=== PATIENT | male | born 1975 | race African-American/Black ===

== ENCOUNTER 2025-01-13 14:58 | Outpatient (AMB) | payer BC, SELFPAY ==
--- NOTE | 2025-01-13 15:01 | A.OFFVIS_ITS ---
Vital Signs 01/13/25 15:03 Height 5 ft 8.9 in Weight 212 lb 11.937 oz BMI 31.5 BP 146/92 H Blood Pressure Location Rt brachial Position Sitting Pulse 89 Pulse Source Pulse Oximeter Pulse Oximetry (%) 96 Oxygen Delivery Method Room Air Intake Visit Reasons: Asthma Allergies shellfish derived Allergy (Intermediate, Verified 01/13/25 15:06) Anaphylaxis HPI Comments Details: The patient is here for pulmonary evaluation. The patient is a 49-year-old gentleman with known severe persistent asthma who presents with ongoing wheezing shortness of breath and chest tightness. The patient does follow closely with allergy and immunology. Over the summer in April was having hard time and the patient did undergo pulmonary function studies. They were done at [place]. I did personally view them. Appeared that he had a significant obstructive ventilatory defect primarily in the post bronchodilator numbers along with roya re small airways disease consistent with severe persistent asthma. In addition to that he did have a restrictive ventilatory defect. Therefore he was sent for CT scan of the chest which I personally reviewed. The patient did have a dilated esophagus with debris suggesting the possibility of microaspiration. In addition to that the patient did have evidence of bronchitis and some atelectasis and mucus plugging primarily in the lingula. On further questioning he states that he has been some difficulty swallowing. He also complains of dyspepsia. He was recently started on omeprazole which seems to be helping. He also has a positional bed and sleeps elevated. We did talk about the reflux diet and is also trying to do that. He is going to continue to limit certain things that activate his symptoms. He had started Tezspire about 2 months ago. Seems to be tolerating it inhaled has been on Breztri inhaler which she takes twice a day. But event that he requires his rescue inhaler or nebulizer couple times a day at least. Even with minimal activity and exercise he becomes significantly winded. Will go ahead and try to maximize his respiratory therapy switching over to nebulized therapy. In addition to that will further address the esophageal issue as a potential precipitants feel his asthma symptoms. Also to note the patient does have some daytime drowsiness. [place] score is elevated 10/24. He did recently have a home sleep study per report which was considered normal. Prior to that he had a sleep study that was abnormal. [facility] Medical History (Updated 01/15/25 @ 22:41 by Brent Wallace MD) Dyspnea Asthma-COPD overlap syndrome Social History (Updated 01/13/25 @ 15:06 by Valorie Clatyon CMA) Patient Tobacco Use Status: Never used Tobacco Review of Systems Const Denies fever(s) Eyes Reports no additional complaints ENT Reports nasal congestion Card Denies chest pain and Reports dyspnea on exertion Resp Reports cough, Reports dyspnea on exertion and Reports wheezing GI Reports dyspepsia Musc Reports no additional complaints Skin/Breast Denies rash Endo Reports no additional complaints Romero/Lymph Reports no additional complaints Aller/Immun Reports wheezing Physical Exam Vital Signs: Last Vital Signs Pulse 89 01/13/25 15:03 BP 146/92 H 01/13/25 15:03 Pulse Ox 96 01/13/25 15:03 Oxygen Delivery Method Room Air 01/13/25 15:03 BMI result Body Mass Index 31.5 Const General: comfortable HEENT Head: Yes normocephalic Neck Neck: Yes supple Chest Chest palpation & inspection: normal inspection of the chest Resp Effort & Inspection: normal respiratory effort Auscultation: diminished lung sounds Cardio Heart sounds: S1 normal heart sound present and S2 normal heart sound present GI Palpation (GI): Soft to palpation Skin General skin exam: no rashes or lesions noted Extrem General: Yes no clubbing, cyanosis or edema Assessment & Plan Assessment & Plan (1) Asthma-COPD overlap syndrome: Code(s): J44.89 - Other specified chronic obstructive pulmonary disease Category: Medical (2) Dyspnea: Code(s): R06.00 - Dyspnea, unspecified Category: Medical Qualifiers: Dyspnea type: dyspnea on exertion Qualified Code(s): R06.09 - Other forms of dyspnea Plan Stop the Breztri start Brovana BID start Budesonide BID start Spiriva Respimet ANNEMARIE as needed Reflux diet HOB elevated Barium swallow Continue PPI F/U 6-8 weeks Orders: Orders FL barium swallow 01/13/25 K21.9 - Gastro-esophageal reflux disease without esophagitis Medications: New budesonide 0.5 mg (2 mL) inhalation BID 120 mL 11RF 30 days J44.89 - Other specified chronic obstructive pulmonary disease, J44.9 - Chronic obstructive pulmonary disease, unspecified tiotropium bromide 2.5 mcg/actuation (Spiriva Respimat) 2 puffs inhalation DAILY 1 ea 11RF 30 days arformoterol (Brovana) 2 mL inhalation Q12H 120 mL 11RF 30 days J44.89 - Other specified chronic obstructive pulmonary disease, J44.9 - Chronic obstructive pulmonary disease, unspecified Coding Level of Care Code New Pt Level 4 (65889) Diagnoses Asthma-COPD overlap syndrome J44.89 Dyspnea on exertion R06.09 Dyspnea type: dyspnea on exertion Time Spent (min) 38
[2025-01-13 15:03] VITALS: BP 146/92; PULSE 89; O2SAT 96; BMI 31.5
--- OUTSIDE RECORDS SUMMARY | 2025-01-13 15:03 | XMS_ITS | Clinical Summary ---
Author Organization [address] [facility] Address [address] [place] [address] Phone Care Team Providers Care Medical Asst Name Role Phone Marcos Wilson MD Primary Care Provider [phone] Allergies Active Allergy Reactions Criticality Noted Date Comments House Dust 07/23/2011 Dust Pollen Extracts 07/23/2011 Pollen Shellfish Derived Anaphylaxis High 08/27/2005 Medications cholecalciferol (VITAMIN D-3) 50 mcg (2,000 unit) tablet Take 1 Tablet by mouth daily. 4 Active diclofenac (VOLTAREN) 1 % topical gel Apply 1 Applicator topically 2 times daily as needed (As needed for pain.). 3 Active dupilumab (Dupixent Syringe) 300 mg/2 mL syringe Inject 300 mg into the skin every 14 days. 1 Active EPINEPHrine (EpiPen 2-Natalio) 0.3 mg/0.3 mL injection Inject 0.3 mg into the muscle as needed for Other (anaphylactic reaction). Fill with whichever brand is covered by insurance. 3 Active loratadine (CLARITIN) 10 mg tablet Take 1 Tablet by mouth daily as needed for Allergies. 3 Active multivitamin (ONE-A-DAY ESSENTIAL ORAL) 1 tab qd Acti ve oxyCODONE-aceta minophen (PERCOCET) 10-325 mg per tablet Take 1 Tablet by mouth 2 times daily as needed for Pain. Active sildenafiL (VIAGRA) 50 mg tablet Take 1 tablet 30 minutes before intercourse as needed. 4 Active ipratropium-alb uteroL (DUONEB) 0.5-2.5 mg/3 mL nebulizer solution Take 3 mL by nebulization every 6 (six) hours if needed for wheezing. 300 mL 3 4 02/22/20 25 Active fluticasone propionate (FLONASE) 50 mcg/actuation nasal spray Shake gently. Before first use, prime pump. After use, clean tip and replace cap. 16 g 5 Active omeprazole (PriLOSEC) [address] capsule Take 1 capsule (40 mg total) by mouth 1 (one) time each day. Do not crush or chew. 90 capsule 3 5 Active budesonide-glyc opyr-formoterol (Breztri Aerosphere) 160-9-4.8 mcg/actuation HFA aerosol inhaler inhaler Inhale 2 puffs by mouth 2 (two) times a day. 1 each 12 5 11/09/19 26 Active atorvastatin (LIPITOR) 20 mg tablet Take 1 tablet (20 mg total) by mouth 1 (one) time each day. 90 tablet 1 5 Active Active Problems Problem Noted Date Diagnosed Date YRN (obstructive sleep apnea) 01/26/2024 Moderate persistent asthma without complication 05/08/2022 Obesity (BMI 30.0-34.9) 05/08/2022 Primary hypertension 05/08/2022 SOB (shortness of breath) 11/27/2020 Overview (08/08/2024): Last Assessment & Plan: Most likely related to asthma. Due to reported mildly reduced left ventricular systolic function by echocardiogram, and other risk factors, I will arrange exercise echocardiogram with Definity contrast to reassess LV systolic function and ischemia evaluation Abnormal echocardiogram 11/26/2020 Overview (08/08/2024): Last Assessment & Plan: I reviewed his echocardiogram. Left ventricular systolic function assessment is difficult due to suboptimal image quality. I will repeat images with Definity contrast for better LV function assessment. Cyclic neutropenia (CMS/HCC V24, CMS/HCC V28) Allergic rhinitis 06/23/2019 Carpal tunnel syndrome 03/09/2019 Severe persistent asthma (CMS/HCC V28) 9 Environmental and seasonal allergies 01/28/2019 Overview (08/08/2024): Cats/dog dander, house mites, shellfish Severe obesity (BMI 35.0-35. 9 with comorbidity) ([facility] V24, [facility] V28) 01/28/2019 Cervical radiculopathy 12/08/2018 Elevated liver enzymes 08/20/2018 Gastroesophageal reflux disease without esophagi tis 06/30/2018 Bursitis of right hip 01/27/2018 Lumbar degenerative disc disease 12/03/2016 Overview (08/08/2024): [facility]ray in [facility] ER 11/30/2016 showing degenerative chnages with 6mm retrolisthesis of L5 - S1. Chest pain 07/07/2014 Overview (08/08/2024): neg ETT 07/2014 Erectile dysfunction 07/07/2014 Hyperlipidemia 06/23/2014 Arcus senilis 09/04/2008 Encounters Date Type Department Care Team Description 11/23/2024 Telephone Pulmonolgy - [address] [phone] June Ann MD provider call back 11/22/2024 Telephone Adult Medicine [address] [phone] Jessica eCrna LPN Fitting for DME 11/09/2024 9:30 AM EST Office Visit Adult Medicine [address] [phone] Marcos Wilsno MD Moderate persistent asthma with exacerbation (Primary Dx); RSV bronchitis; Mixed hyperlipidemia; Gastroesophageal reflux disease without esophagitis; Degeneration of intervertebral disc of lumbar region with discogenic back pain 10/31/2024 11:26 PM EST - 11/01/2024 1:26 AM EST Emergency [facility] Emergency [address] [place] [phone] Exacerbation of asthma, unspecified asthma severity, unspecified whether persistent (Primary Dx); Rhinovirus infection Discharge Disposition: Home or Self Care from Last 3 Months Immunizations Name Administration Dates Next Due Influenza Quadravalent, MDCK , 0.5ml, preservative free (Flucelvax) 6mo and older 10/22/2020 Influenza trivalent, 0.5mL, preservative free (Fluarix; FluLaval; Fluzone) ages 6mo and older (Afluria) 3 years and older 10/26/2017,12/12/2014,08/08/2013,08/10,06/17/2010,08/23/2008,06/28/2007 ,07/16/2006,07/28/2005 Influenza, Unspecified 11/04/2017 Pfizer SARS-CoV-2 COVID-19, mRNA, LNP-S, preservative free 10/16/2021,09/09/2021 Pneumococcal polysaccharide 23 valent (Pneumovax 23) 2yo and older 08/08/1994 Tdap Tetanus diptheria acell ular pertussis (Boostrix; Adacel) 7yo and older 12/07/2017,08/23/2008 Surgical History Surgery Date Site/Laterality Comments NOSE SURGERY PROCEDURE: MN UNLISTED PROCEDURE NOSE; COMMENT: septoplasty 2009 WISDOM TOOTH EXTRACTION PROCEDURE: HISTORICAL WISDOM TEETH EXTRACTION OTHER SURGICAL HISTORY 02/2022 Right PROCEDURE: MN ARTHRP ACETBLR/PROX FEM PROSTC AGRFT/ALGRFT; COMMENT: Brothana m's Medical History Medical History Date Comments Esophageal reflux 10/07/2005 DX:Esophageal reflux Allergic rhinitis DX:Allergic rh initis Hyperlipidemia DX:Hyperlipidemi a Overweight DX:Overweight Right rotator cuff tendonitis DX :Right rotator cuff tendonitis; COMMENT: left Moderate persistent asthma w ith exacerbation 08/27/2005 DX:Moderate persistent asthm a with exacerbation Carpal tunnel syndrome 03/09/2019 DX:Carpal tunnel syndrome Primary hypertension 05/08/2022 DX:Primary hypertension Primary hypertension 05/08/2022 Family History Medical History Relation Name Comments Breast cancer Aunt Asthma Daughter 1 Colon polyps Father Arthritis Maternal Grandmother Blindness Maternal Grandmother Cataracts Maternal Grandmother Diabetes Mother asthma Glaucoma Neg Hx Macular degeneration Neg Hx Strabismus Neg Hx Relation Name Status Comments Aunt Alive Brother Alive Daughter 1 Alive Daughter 2 Alive Father Alive Maternal Grandmother Alive Mother Alive Social History Tobacco Use Types Packs/Day Years Used Date Smoking Tobacco: Never Smokeless Tobacco: Never Tobacco Cessation:Counseling Given: Not Answered Alcohol Use Standard Drinks/Week Comments Yes 0 (1 standard drink = 0.6 oz pur e alcohol) Sex and Gender Information Value Date Recorded Sex Assigned at Not on file Legal Sex Male 2:08 PM EST Gender Identity Not on file Sexual Orientation Not on file Obstetrics History Last Filed Vital Signs Vital Sign Reading Time Taken Comments Blood Pressure 126/84 11/09/2024 9:19 AM EST Pulse 78 10/31/2024 10:20 PM EST Temperature 36.9 ??C (98.5 ??F) 11/09/2024 9:19 AM ES T Respiratory Rate 14 11/09/2024 9:19 AM EST Oxygen Saturation 96% 10/31/2024 10:20 PM EST Inhaled Oxygen Concentration - - Weight 96.2 kg (212 lb) 11/09/2024 9:19 AM EST Height 175.3 cm (5' 9 ) 11/09/2024 9:19 AM EST Body Mass Index 31.31 11/09/2024 9:19 AM EST Plan of Treatment Upcoming Encounters Date Type Department Care Team (Late st Contact Info) Description 02/02/2025 8:15 AM EDT [facility] [address] [phone] June Ann MD [address] [address] 03/06/2025 10:00 AM EDT [facility] [address] [phone] Jocelyne Jurado 03/15/2025 9:45 AM EDT [facility] [address] [phone] June Ann MD [address] [phone] Health Maintenance Due Date Last Done Comments Hepatitis B Vaccines (1 of 3 - 19+ 3-dose series) 1992 Zoster Vaccines (1 of 2) 1992 Pneumococcal Vaccine: 50+ Years (3 of 3 - PCV) 04/04/2011 04/04/2010, 05/31/2006, 08/08/1994 Pneumococcal Vaccine: Pediatrics (0 to 5 Years) and At-Risk Patients (6 to 64 Years) (3 of 3 - PCV) 04/04/2011 04/04/2010, 05/31/2006, 08/08/1994 COVID-19 Vaccine (3 - Pfizer risk series) 11/13/2021 10/16/2021, 09/09/2021 Depression Screening 09/13/2022 Social Influencers of Health Screening 09/13/2022 Influenza Vaccine (Season Ended) 2025 09/19/2022, 10/22/2020, 11/04/2017, Additional history exists Hypertension/CHF/CAD Annual BMP Blood Test 06/20/2025 06/20/2024, 06/20/2024 Colorectal Cancer Screening: Colonoscopy 01/07/2026 01/07/2021 DTaP,Tdap,and Td Vaccines (3 - Td or Tdap) 12/08/2027 12/07/2017, 08/23/2008 Cholesterol Screening (Lipid Panel) 05/11/2028 05/11/2023 HIV Screening Completed 08/08/2013 Hepatitis C Screening Completed 08/08/2013 HIB Vaccines Aged Out No longer eligi ble based on patient's age to complete this topic HPV Vaccines Aged Out No longer eligi ble based on patient's age to complete this topic Hepatitis A Vaccines Aged Out No long er eligible based on patient's age to complete this topic IPV Vaccines Aged Out No longer eligi ble based on patient's age to complete this topic MMR Vaccines Aged Out No longer eligi ble based on patient's age to complete this topic Meningococcal ACWY Vaccine Aged Out N o longer eligible based on patient's age to complete this topic Meningococcal B Vaccine Aged Out No l onger eligible based on patient's age to complete this topic RSV Immunization Patients Under 20 months Aged Out No longer eligible based on patient's age to complete this topic Varicella Vaccines Aged Out No longer eligible based on patient's age to complete this topic Procedures Procedure Name Priority Date/Time Associated Diagnosis Comments POLYSOMNOGRAPHY Routine 12/27/2024 1:29 PM EDT XR CHEST 2 VIEWS STAT 10/31/2024 11:4 1 PM EST RESPIRATORY VIRUS PANEL MOLECULAR STUDY STAT 10/31/2024 10:36 PM EST ANNUAL BMP BLOOD TEST Routine 06/20/2024 LIPID PANEL Routine 05/11/2023 COLONOSCOPY Routine 01/07/2021 HEPATITIS C SCREENING Routine 08/08/2013 HIV SCREENING Routine 08/08/2013 from Last 3 Months or Most Recently Relevant to Health Maintenance Results * Polysomnography (12/27/2024 1:29 PM EDT) us Historical Provider [facility] ORDERABLES F inal Result * XR Chest 2 Views (10/31/2024 11:41 PM EST) Anatomical Region Laterality Modality Body Radiographic Jael ging 11/01/2024 8:48 AM EST Impressions 11/01/2024 8:49 AM EST Impression: Stable radiographic appearance of the chest. No active pulmonary process identified. Telerad SIERRA ([id number]) -------- FINAL REPORT -------- Dictated By: Rowan Camacho Dictated Date: 11/01/2024 08:48 ET Assigned Physician: Rowan Camacho Reviewed and Electronically Signed By: Rowan Camacho Signed Date: 11/01/2024 08:49 ET Workstation ID: [id number] Transcribed By: Self Edit Transcribed Date: 11/01/2024 08:48 ET Narrative 11/01/2024 8:49 AM EST History: Dyspnea. Asthma. Comparison: 06/20/20 Findings: PA and lateral views. The cardiomediastinal silhouette, hilar contours and pulmonary vascularity are within normal limits. The lungs are clear. The costophrenic angles are sharp. The regional skeleton is intact. Procedure Note Rowan Camacho MD - 11/01/2024 History: Dyspnea. Asthma. Comparison: 06/20/20 Findings: PA and lateral views. The cardiomediastinal silhouette, hilar contours andpulmonary vascularity are within normal limits. The lungs are clear. Thecostophrenic angles are sharp. The regional skeleton is intact. IMPRESSION: Impression: Stable radiographic appearance of the chest. No active pulmonary processidentified. Telerad PA ([id number]) -------- FINAL REPORT -------- Dictated By: Rowan Camacho Dictated Date: 11/01/2024 08:48 ET Assigned Physician: Rowan Camacho Reviewed and Electronically Signed By: Rowan Camacho Signed Date: 11/01/2024 08:49 ET Workstation ID: [id number] Transcribed By: Self Edit Transcribed Date: 11/01/2024 08:48 ET Nba Dawson MD IMG XR PROCEDURES Final R esult * (ABNORMAL) Respiratory virus panel molecular study (10/31/2024 10:36 PM EST) Adenovirus Detection by PCR Not Detected Not Detected LAB MICROBIOLOGY METHOD 11/01/2024 12:23 AM [facility] Influenza A PCR Not Detected Not Detected LAB MICROBIOLOGY METHOD 11/01/2024 12:23 AM [facility] Influenza B PCR Not Detected Not Detected LAB MICROBIOLOGY METHOD 11/01/2024 12:23 AM [facility] Coronavirus 229E Not Detected Not Detected LAB MICROBIOLOGY METHOD 11/01/2024 12:23 AM [facility] Coronavirus HKU1 Not Detected Not Detected LAB MICROBIOLOGY METHOD 11/01/2024 12:23 AM [facility] Coronavirus OC43 Not Detected Not Detected LAB MICROBIOLOGY METHOD 11/01/2024 12:23 AM [facility] Coronavirus NL63 Not Detected Not Detected LAB MICROBIOLOGY METHOD 11/01/2024 12:23 AM [facility] Parainfluenza Virus 1 Not Detected Not Detected LAB MICROBIOLOGY METHOD 11/01/2024 12:23 AM [facility] Parainfluenza Virus 2 Not Detected Not Detected LAB MICROBIOLOGY METHOD 11/01/2024 12:23 AM [facility] Parainfluenza Virus 3 Not Detected Not Detected LAB MICROBIOLOGY METHOD 11/01/2024 12:23 AM [facility] Parainfluenza Virus 4 Not Detected Not Detected LAB MICROBIOLOGY METHOD 11/01/2024 12:23 AM [facility] RSV PCR Not Detected Not Detected LAB MICROBIOLOGY METHOD 11/01/2024 12:23 AM [facility] Human Metapneumovirus A and B Not Detected Not Detected LAB MICROBIOLOGY METHOD 11/01/2024 12:23 AM [facility] Rhinovirus/Entero virus Detected(A ) Not Detected LAB MICROBIOLOGY METHOD 11/01/2024 12:23 AM [facility] Bordetella pertussis Not Detected Not Detected LAB MICROBIOLOGY METHOD 11/01/2024 12:23 AM [facility] Bordetella parapertussis Not Detected Not Detected LAB MICROBIOLOGY METHOD 11/01/2024 12:23 AM [facility] Mycoplasma pneumo by PCR Not Detected Not Detected LAB MICROBIOLOGY METHOD 11/01/2024 12:23 AM [facility] Chlamydia pneumoniae Not Detected Not Detected LAB MICROBIOLOGY METHOD 11/01/2024 12:23 AM [facility] SARS COV-2 Not Detected Not Detected LAB MICROBIOLOGY METHOD 11/01/2024 12:23 AM [facility] Swab Nasopharyngeal structure / Unknown Non-blood Collection / Unknown 10/31/2024 10:36 PM EST 10/31/2024 11:28 PM EST [facility] - 11/01/2024 12:23 AM EST Testing was performed using the Ampriuse Respiratory Pathogen PCR Assay. All results must be correlated with the clinical findings. Results should not be used as the sole basis for diagnosis. False Negative results may occur from the presence of sequence variants in the region targeted by the assay or the presence of inhibitors. Results may be affected by concurrent antiviral/antimicrobial therapy or levels of organisms that are below the limit of detection. Nba Dawson MD LAB MICROBIOLOGY - GENERA L ORDERABLES Final Result [facility] [address] [place] [address], * Annual BMP Blood Test (06/20/2024) [facility] Annual BMP Blood Test Abstracted Result [facility] Provider HEALTH MAINTENANCE Final Result * (ABNORMAL) Lipid panel (05/11/2023) [facility] LDL/HDL Ratio 3 0 - 4 Triglycerides 64 0 - 150 mg/dL Cholesterol 169 0 - 200 mg/dL HDL 55 >=40 mg/dL LDL Cholesterol 102(A) 0 - 100 mg/dL Blood Venous blood specimen / Unknown Result [facility] Yuriy LUTHER LAB BLOOD ORDERABLES Tereza l Result * Colonoscopy (01/07/2021) [facility] Colonoscopy Normal, Abstracted Anatomical Region Laterality Modality Other Result [facility] Yuriy LUTHER HEALTH MAINTENANCE Final Result * HIV Screening (08/08/2013) [facility] HIV Screening Abstracted Result [facility] Provider HEALTH MAINTENANCE Final Result * Hepatitis C Screening (08/08/2013) [facility] Hepatitis C Screening Abstracted [facility] Provider HEALTH MAINTENANCE Final Result from Last 3 Months or Most Recently Relevant to Health Maintenance Insurance [facility] Care Teams Medical Asst Relationship Specialty Start Date End Date Marcos Wilson MD [address] [place] [address] PCP - General Internal Medicine 04/18/22
--- OUTSIDE RECORDS SUMMARY | 2025-01-13 15:03 | XMS_ITS | Clinical Summary ---
Author Organization [facility] Address [address] [place] [id number] Care Team Providers Care Leveling Machine Operator Name Role Phone Maximo Little MD Primary Care Provider [phone] Allergies Active Allergy Reactions Criticality Noted Date Comments Dust 04/27/2019 Pollen Extract 04/27/2019 Shellfish Anaphylaxis High 04/27/2019 Medications Medication Sig Dispensed Refills Start Date End Date Status loratadine (CLARITIN) 10 MG tablet Take 10 mg by mouth. 0 02/09/2018 Active montelukast (SINGULAIR) 10 MG tablet 0 04/06/2019 Active raNITIdine (ZANTAC) 75 MG tablet Take 75 mg by mouth. 0 Active albuterol (PROVENTIL HFA;VENTOLIN HFA) 108 (90 Base) MCG/ACT inhaler Inhale 2 puffs into the lungs. 0 04/23/2019 Active atorvastatin (LIPITOR) tablet 20 mg 0 04/06/2019 Active oxyCODONE-acetaminophe n (PERCOCET) 10-325 MG per tablet Take 1 tablet by mouth. 0 04/26/2019 Active fluticasone-salmeterol (ADVAIR) 500-50 MCG/DOSE DISKUS Inhale 1 puff into the lungs. 0 03/15/2019 Active Active Problems Problem Noted Date Diagnosed Date Right carpal tunnel syndrome 04/27/2019 Left carpal tunnel syndrome 04/27/2019 Family History Medical History Relation Name Comments Diabetes Mother Relation Name Status Comments Mother Social History Tobacco Use Types Packs/Day Years Used Date Smoking Tobacco: Never Smokeless Tobacco: Never Alcohol Use Standard Drinks/Week Comments Yes 0 (1 standard drink = 0.6 oz pur e alcohol) Sex and Gender Information Value Date Recorded Sex Assigned at Not on file Gender Identity Not on file Sexual Orientation Not on file Job Start Date Occupation Industry Not on file Not on file Not on file Last Filed Vital Signs Vital Sign Reading Time Taken Comments Blood Pressure 137/82 04/03/2020 3:02 PM EDT Pulse 94 04/03/2020 3:02 PM EDT Temperature 36.3 ??C (97.4 ??F) 04/03/2020 3:02 PM ED T Respiratory Rate - - Oxygen Saturation - - Inhaled Oxygen Concentration - - Weight 92.1 kg (203 lb) 12/25/2021 2:31 PM EDT Height 175.3 cm (5' 9 ) 12/25/2021 2:31 PM EDT Body Mass Index 29.98 12/25/2021 2:31 PM EDT Plan of Treatment Health Maintenance Due Date Last Done Comments Hepatitis B Vaccines (1 of 3 - 3-dose series) 1973 Hepatitis C Screening 1973 Depression Screening 1985 BMI Counseling 1991 Preventative Health Evaluation 1991 Colon Cancer Screening (Colonoscopy) 2018 Shingrix-Zoster Vaccine (1 of 2) 2023 COVID-19 Vaccine ( season) 2024 10/16/2021, 09/09/2021 Influenza Vaccine (#1) 2024 , 12/12/2014, 08/08/2013, Additional history exists DTap / Tdap / Td (3 - Td or Tdap) 12/08/2027 12/07/2017, 08/23/2008 Pneumococcal Vaccine Aged Out 08/08/1994 No long er eligible based on patient's age to complete this topic RSV Ped < 20 months Aged Out No longe r eligible based on patient's age to complete this topic Care Teams Leveling Machine Operator Relationship Specialty Start Date End Date Maximo Little MD PCP - General Internal Medicine 04/27/19
== END 2025-01-13 15:49 | disposition home or self-care (01) ==
LOC: HO.HPS 14:59
PROVIDERS: PCP Internal Medicine; Visit Provider Hospitalist
DX: J44.89 Other specified chronic obstructive pulmonary disease (principal); R06.09 Other forms of dyspnea
CPT/HCPCS: 99204

== ENCOUNTER 2025-03-14 08:29 | Outpatient (AMB) | payer BC, SELFPAY ==
[2025-03-14 08:41] VITALS: BP 100/68; PULSE 85; O2SAT 95; BMI 30.8
--- NOTE | 2025-03-14 08:41 | MHC.OFFVIS ---
Vital Signs 03/14/25 08:41 Height 5 ft 9 in Weight 208 lb 5.389 oz BMI 30.8 BP 100/68 Blood Pressure Location Lt brachial Position Sitting Pulse 85 Pulse Source Pulse Oximeter Pulse Oximetry (%) 95 Oxygen Delivery Method Room Air Intake Visit Reasons: Asthma Special Delivery Worker Required: No Accompanied by: Self / Same As Patient Allergies shellfish derived Allergy (Intermediate, Verified 03/14/25 08:43) Anaphylaxis HPI Comments Details: The patient is a 49-year-old gentleman with known severe persistent asthma who presents with ongoing wheezing shortness of breath and chest tightness. The patient does follow closely with allergy and immunology. Over the summer in April was having hard time and the patient did undergo pulmonary function studies. They were done at [facility]. I did personally view them. Appeared that he had a significant obstructive ventilatory defect primarily in the post bronchodilator numbers along with severe small airways disease consistent with severe persistent asthma. In addition to that he did have a restrictive ventilatory defect. Therefore he was sent for CT scan of the chest which I personally reviewed. The patient did have a dilated esophagus with debris suggesting the possibility of microaspiration. In addition to that the patient did have evidence of bronchitis and some atelectasis and mucus plugging primarily in the lingula. On further questioning he states that he has been some difficulty swallowing. He also complains of dyspepsia. He was recently started on omeprazole which seems to be helping. He also has a positional bed and sleeps elevated. We did talk about the reflux diet and is also trying to do that. He is going to continue to limit certain things that activate his symptoms. He had started Tezspire about 2 months ago. Seems to be tolerating it inhaled has been on Breztri inhaler which she takes twice a day. But event that he requires his rescue inhaler or nebulizer couple times a day at least. Even with minimal activity and exercise he becomes significantly winded. Will go ahead and try to maximize his respiratory therapy switching over to nebulized therapy. In addition to that will further address the esophageal issue as a potential precipitants feel his asthma symptoms. Also to note the patient does have some daytime drowsiness. [place] score is elevated 07/28. He did recently have a home sleep study per report which was considered normal. Prior to that he had a sleep study that was abnormal. 03/14/2025 the patient is here for pulmonary follow-up visit. Overall the patient is doing better. He has been responding well to the Brovana and budesonide. He has not requiring additional medication. Although he still has episodes of shortness of breath. Sometimes he feels that he has lung capacity is very limited and worries him a he gets anxious. He feels like that also makes his breathing worse. His swallow still an issue. We did do a barium swallow demonstrating some mild dysmotility but at least no significant reflux appreciated. He continues to follow the reflux diet and make sure ensure that he sleep elevated to minimize symptoms. He continues on the Tezspire. Therefore will continue the therapy at this time. We did have him repeat these spirometry demonstrating significant improvement is FVC improved from 50% to 83% and his FEV1 improved from 48% to 58%. He is going to increase the Spiriva to 2 inhalations daily continue with the Brovana budesonide and continue with the Tezspire. He does complaint of mucus buildup in the back of the throat. Will try him on a 5 day course of azithromycin to see this provides some relief. He is already taking hallucinated therapies with kaushik, [place] and honey is also using Mucinex as needed. Will follow-up in 3 4 months. If he has any issues prior to this he will call for an earlier assessment. [facility] Medical History (Updated 03/14/25 @ 21:14 by Brent Wallace MD) Asthma Dyspnea Asthma-COPD overlap syndrome Social History Patient Tobacco Use Status: Never used Tobacco Review of Systems Const Denies fever(s) Eyes Reports no additional complaints ENT Reports nasal congestion Card Denies chest pain and Reports dyspnea on exertion Resp Reports cough, Reports dyspnea on exertion and Reports wheezing GI Reports dyspepsia Musc Reports no additional complaints Skin/Breast Denies rash Endo Reports no additional complaints Romero/Lymph Reports no additional complaints Aller/Immun Reports wheezing Physical Exam Vital Signs: Last Vital Signs Pulse 85 03/14/25 08:41 BP 100/68 03/14/25 08:41 Pulse Ox 95 03/14/25 08:41 Oxygen Delivery Method Room Air 03/14/25 08:41 BMI result Body Mass Index 30.8 Const General: comfortable HEENT Head: Yes normocephalic Neck Neck: Yes supple Chest Chest palpation & inspection: normal inspection of the chest Resp Effort & Inspection: normal respiratory effort Auscultation: diminished lung sounds Cardio Heart sounds: S1 normal heart sound present and S2 normal heart sound present GI Palpation (GI): Soft to palpation Skin General skin exam: no rashes or lesions noted Extrem General: Yes no clubbing, cyanosis or edema Office Procedures Spirometry Testing Spirometry Comments: moderate obstruction 05437- Spirometry Assessment & Plan Assessment & Plan (1) Asthma-COPD overlap syndrome: Code(s): J44.89 - Other specified chronic obstructive pulmonary disease Category: Medical (2) Dyspnea: Code(s): R06.00 - Dyspnea, unspecified Category: Medical Qualifiers: Dyspnea type: dyspnea on exertion Qualified Code(s): R06.09 - Other forms of dyspnea (3) Asthma: Code(s): J45.909 - Unspecified asthma, uncomplicated Category: Medical Qualifiers: Asthma severity: severe Asthma persistence: persistent Asthma complication type: uncomplicated Qualified Code(s): J45.50 - Severe persistent asthma, uncomplicated Plan Brovana BID Budesonide BID Spiriva Respimet ANNEMARIE as needed Reflux diet HOB elevated Continue PPI continue Tezspire start Azithromycinx5 days F/U 3-4 months Medications: New azithromycin 500 mg PO DAILY 5 tabs 0RF 5 days Coding Level of Care Code Est Pt Level 4 (38328) Diagnoses Asthma-COPD overlap syndrome J44.89 Dyspnea on exertion R06.09 Dyspnea type: dyspnea on exertion Severe persistent asthma without complication J45.50 Asthma severity: severe Asthma persistence: persistent Asthma complication type: uncomplicated CPT Codes Spirometry - CPT: 69293- Spirometry ([id number]) Time Spent (min) 17
--- OUTSIDE RECORDS SUMMARY | 2025-03-14 08:44 | XMS_ITS | Clinical Summary ---
Author Organization [facility] Address [address] [place] [address] Phone Care Team Providers Care Video Journalist Name Role Phone Marcos Wilson MD Primary Care Provider [phone] Allergies Active Allergy Reactions Criticality Noted Date Comments House Dust 07/23/2011 Dust Pollen Extracts 07/23/2011 Pollen Shellfish Derived Anaphylaxis High 08/27/2005 Medications cholecalcifero l (VITAMIN D-3) 50 mcg (2,000 unit) tablet Take 1 Tablet by mouth daily. 06/20/20 24 Active EPINEPHrine (EpiPen 2-Natalio) 0.3 mg/0.3 mL injection Inject 0.3 mg into the muscle as needed for Other (anaphylactic reaction). Fill with whichever brand is covered by insurance. 07/14/20 23 Active loratadine (CLARITIN) 10 mg tablet Take 1 Tablet by mouth daily as needed for Allergies. 07/14/20 23 Active multivitamin (ONE-A-DAY ESSENTIAL ORAL) 1 tab qd Active oxyCODONE-acet aminophen (PERCOCET) 10-325 mg per tablet Take 1 Tablet by mouth 2 times daily as needed for Pain. Active ipratropium-al buteroL (DUONEB) 0.5-2.5 mg/3 mL nebulizer solution Take 3 mL by nebulization every 6 (six) hours if needed for wheezing. 300 mL 3 08/25/20 24 Active fluticasone propionate (FLONASE) 50 mcg/actuation nasal spray Shake gently. Before first use, prime pump. After use, clean tip and replace cap. 16 g 10/27/19 25 Active omeprazole (PriLOSEC) [address] capsule Take 1 capsule (40 mg total) by mouth 1 (one) time each day. Do not crush or chew. 90 capsule 3 11/09/19 25 Active budesonide-gly copyr-formoter ol (Breztri Aerosphere) 160-9-4.8 mcg/actuation HFA aerosol inhaler inhaler Inhale 2 puffs by mouth 2 (two) times a day. 1 each 12 11/09/19 25 026 Active atorvastatin (LIPITOR) 20 mg tablet Take 1 tablet (20 mg total) by mouth 1 (one) time each day. 90 tablet 1 11/09/19 25 Active arformoteroL (BROVANA) 15 mcg/2 mL nebulizer solution 01/14/20 25 Active Tezspire 210 mg/1.91 mL (110 mg/mL) injection Inject 210 mg under the skin every 28 (twenty-eight) days. 01/14/20 25 Active Spiriva Respimat 2.5 mcg/actuation inhalation spray Inhale 2 puffs by mouth 1 (one) time each day. 01/14/20 25 Active tiZANidine (ZANAFLEX) 4 mg tablet Take by mouth. 12/30/19 25 Active losartan (Cozaar) 50 mg tablet Take 1 tablet (50 mg total) by mouth 1 (one) time each day. 90 each 1 01/20/20 25 Active sildenafiL (VIAGRA) 50 mg tablet TAKE 1 TABLET BY MOUTH 30 MINUTES BEFORE INTERCOURSE NEEDED 10 tablet 4 02/21/20 25 Active albuterol HFA (Ventolin HFA) 90 mcg/actuation inhaler Inhale 2 puffs by mouth every 4 (four) hours if needed for wheezing or shortness of breath. 8 g 5 03/10/20 25 026 Active sildenafiL (VIAGRA) 50 mg tablet Take 1 tablet 30 minutes before intercourse as needed. 08/04/20 24 025 Discontinued Active Problems Problem Noted Date Diagnosed Date [...] for better LV function assessment. Cyclic neutropenia ([facility] V24, [facility] V28) Allergic rhinitis 06/23/2019 Carpal tunnel syndrome 03/09/2019 Severe persistent asthma ([facility] V28) 9 Environmental and seasonal allergies 01/28/2019 Overview (08/08/2024): Cats/dog dander, house mites, shellfish Severe obesity (BMI 35.0-35. 9 with comorbidity) ([facility] V24, [facility] V28) 01/28/2019 Cervical radiculopathy 12/08/2018 Elevated liver enzymes 08/20/2018 Gastroesophageal reflux disease without esophagi tis 06/30/2018 Bursitis of right hip 01/27/2018 Lumbar degenerative disc disease 12/03/2016 Overview (08/08/2024): Xray in [facility] ER 11/30/2016 showing degenerative chnages with 6mm retrolisthesis of L5 - S1. Chest pain 07/07/2014 Overview (08/08/2024): neg ETT 07/2014 Erectile dysfunction 07/07/2014 Hyperlipidemia 06/23/2014 Arcus senilis 09/04/2008 Encounters Date Type Department Care Team Description 01/19/2025 9:00 AM EDT Office Visit Adult Medicine [address] [address] Marcos Wilson MD Primary hypertension (Primary Dx); Transaminitis; Screening for prostate cancer; Mixed hyperlipidemia; Screening for diabetes mellitus (DM) 01/18/2025 7:53 PM EDT - 01/18/2025 9:46 PM EDT Emergency [facility] Emergency [address] [place] [address] Carlos Tucker MD Hypertension, unspecified type (Primary Dx) Discharge Disposition: Home or Self Care from Last 3 Months Immunizations Name Administration Dates Next Due Influenza Quadravalent, MDCK , 0.5ml, preservative free (Flucelvax) 6mo and older 10/22/2020 Influenza trivalent, 0.5mL, preservative free (Fluarix; FluLaval; Fluzone) ages 6mo and older (Afluria) 3 years and older 10/26/2017,12/12/2014,08/08/2013,08/10,06/17/2010,08/23/2008,06/28/2007 ,07/16/2006,07/28/2005 Influenza, Unspecified 11/04/2017 Nacuii SARS-CoV-2 COVID-19, mRNA, LNP-S, preservative free 10/16/2021,09/09/2021 Pneumococcal polysaccharide 23 valent (Pneumovax 23) 2yo and older 08/08/1994 Tdap Tetanus diptheria acell ular pertussis (Boostrix; Adacel) 7yo and older 12/07/2017,08/23/2008 Surgical History Surgery Date Site/Laterality Comments NOSE SURGERY PROCEDURE: [place] UNLISTED PROCEDURE NOSE; COMMENT: septoplasty 2009 WISDOM TOOTH EXTRACTION PROCEDURE: HISTORICAL WISDOM TEETH EXTRACTION OTHER SURGICAL HISTORY 02/2022 Right PROCEDURE: [place] ARTHRP ACETBLR/PROX FEM PROSTC AGRFT/ALGRFT; COMMENT: Dr. Howe's Medical History Medical History Date Comments Esophageal [...] Sign Reading Time Taken Comments Blood Pressure 112/80 01/19/2025 9:13 AM EDT Pulse 78 01/19/2025 9:00 AM EDT Temperature 37 ??C (98.6 ??F) 01/18/2025 5:59 PM EDT Respiratory Rate 16 01/19/2025 9:00 AM EDT Oxygen Saturation 99% 01/18/2025 5:59 PM EDT Inhaled Oxygen Concentration - - Weight 95.3 kg (210 lb) 01/19/2025 9:00 AM EDT Height 175.3 cm (5' 9 ) 01/18/2025 4:12 PM EDT Body Mass Index 31.01 01/18/2025 4:12 PM EDT Plan of Treatment Health Maintenance [...] 2025 09/19/2022, 10/22/2020, 11/04/2017, Additional history exists Colorectal Cancer Screening: Colonoscopy 01/07/2026 01/07/2021 Hypertension/CHF/CAD Annual BMP Blood Test 01/18/2026 01/18/2025, 06/20/2024, 06/20/2024 DTaP,Tdap,and Td Vaccines (3 - Td or Tdap) 12/08/2027 12/07/2017, 08/23/2008 Cholesterol Screening (Lipid Panel) 02/13/2030 02/13/2025, 05/11/2023 HIV Screening Completed 08/08/2013 Hepatitis C [...] Procedure Name Priority Date/Time Associated Diagnosis Comments PROSTATE SPECIFIC ANTIGEN SCREEN Routine 02/13/2025 12:55 PM EDT Screening for prostate cancer HEPATIC FUNCTION PANEL Routine 12:55 PM EDT Transaminitis LIPID PANEL WITH REFLEX TO DIRECT LDL Routine 02/13/2025 12:55 PM EDT Mixed hyperlipidemia HEMOGLOBIN A1C Routine 02/13/2025 12:55 PM EDT Primary hypertension Screening for diabetes mellitus (DM) ECG ANNOTATED 01/19/2025 CBC WITH AUTO DIFFERENTIAL STAT 01/18/2025 5:21 PM EDT MAGNESIUM STAT 01/18/2025 5:21 PM EDT LIPASE STAT 01/18/2025 5:21 PM EDT COMPREHENSIVE METABOLIC PANEL STAT 01/18/2025 5:21 PM EDT CBC AND DIFFERENTIAL STAT 01/18/2025 5:21 PM EDT TROPONIN I HIGH SENSITIVITY STAT 01/18/2025 5:21 PM EDT ECG 12-LEAD STAT 01/18/2025 4:23 PM EDT POLYSOMNOGRAPHY Routine 12/27/2024 1:29 PM EDT COLONOSCOPY Routine 01/07/2021 HEPATITIS C SCREENING Routine 08/08/2013 HIV SCREENING Routine 08/08/2013 from Last 3 Months or Most Recently Relevant to Health Maintenance Results * Prostate specific antigen screen (02/13/2025 12:55 PM EDT) PSA 1.64 0.00 - 4.00 ng/mL LAB CHEMISTRY METHOD 02/13/2025 5:10 PM EDT [facility] Blood Venous blood specimen / Unknown Venipuncture / Unknown 02/13/2025 12:55 PM EDT 02/13/2025 12:55 PM EDT Narrative [facility] - 02/13/2025 5:10 PM EDT The Siemens Advia Centaur Chemiluminescent Immunoassay is used. Results obtained with different assay methods or kits cannot be used interchangeably. Results cannot be interpreted as absolute evidence of the presence or absence of malignant disease. us Marcos Wilson MD LAB BLOOD ORDERABLES Final Result [facility] [address] [place] [address], [place] [phone] * Lipid panel with reflex to direct LDL (02/13/2025 12:55 PM EDT) Cholesterol 152 0 - 200 mg/dL LAB CHEMISTRY METHOD 02/13/2025 4:16 PM EDT [facility] Triglycerides 50 0 - 150 mg/dL LAB CHEMISTRY METHOD 02/13/2025 4:16 PM EDT [facility] HDL 51 >=40 mg/dL LAB CHEMISTRY METHOD 02/13/2025 4:16 PM EDT [facility] LDL Calculated 91 0 - 100 mg/dL LAB CHEMISTRY METHOD 02/13/2025 4:16 PM EDT [facility] VLDL Cholesterol Jono 10 mg/dL LAB CHEMISTRY METHOD 02/13/2025 4:16 PM EDT [facility] Non HDL Chol. (LDL+VLDL) 101 <145 mg/dL LAB CHEMISTRY METHOD 02/13/2025 4:16 PM EDT [facility] Chol/HDL Ratio 3.0 0.0 - 4.4 LAB CHEMISTRY METHOD 02/13/2025 4:16 PM EDT [facility] Blood Venous blood specimen / Unknown Venipuncture / Unknown 02/13/2025 12:55 PM EDT 02/13/2025 12:55 PM EDT Marcos Wilsno MD LAB BLOOD ORDERABLES Final Result [facility] [address] [place] [address], [place] [phone] * Hemoglobin A1c (02/13/2025 12:55 PM EDT) Hemoglobin A1C 5.8 <6.5 % LAB CHEMISTRY METHOD 02/13/2025 10:16 PM EDT [facility] Mean Bld Glu Estim. 120 mg/dL LAB CHEMISTRY METHOD 02/13/2025 10:16 PM EDT [facility] Blood Venous blood specimen / Unknown Venipuncture / Unknown 02/13/2025 12:55 PM EDT 02/13/2025 12:55 PM EDT us Marcos Wilson MD LAB BLOOD ORDERABLES Final Result [facility] [address] [place] [address], [place] [phone] * Hepatic function panel (02/13/2025 12:55 PM EDT) Total Protein 7.5 6.0 - 8.0 g/dL LAB CHEMISTRY METHOD 02/13/2025 4:16 PM EDT [facility] Albumin 4.1 3.2 - 5.0 g/dL LAB CHEMISTRY METHOD 02/13/2025 4:16 PM EDT [facility] Total Bilirubin 1.0 0.0 - 1.4 mg/dL LAB CHEMISTRY METHOD 02/13/2025 4:16 PM [facility] Bilirubin, Direct 0.2 0.0 - 0.3 mg/dL LAB CHEMISTRY METHOD 02/13/2025 4:16 PM EDT [facility] Bilirubin, Indirect 0.8 0.0 - 1.1 mg/dL LAB CHEMISTRY METHOD 02/13/2025 4:16 PM [facility] ALT (SGPT) 48 10 - 60 unit/L LAB CHEMISTRY METHOD 02/13/2025 4:16 PM T [facility] AST (SGOT) 40 10 - 42 unit/L LAB CHEMISTRY METHOD 02/13/2025 4:16 PM [facility] Alkaline Phosphatase 115 42 - 121 unit/L LAB CHEMISTRY METHOD 02/13/2025 4:16 PM [facility] Blood Venous blood specimen / Unknown Venipuncture / Unknown 02/13/2025 12:55 PM EDT 02/13/2025 12:55 PM EDT Marcos Wilson MD LAB BLOOD ORDERABLES Final Result Performing Organization Address [facility] Co de Phone Number [facility] [address] [place] [address], * ECG-Annotated (01/19/2025) Provider Onbase ECG ORDERABLES Final Result * Troponin I high sensitivity (01/18/2025 5:21 PM EDT) [facility] High Sensitivity Troponin I 7 <=79 ng/L LAB CHEMISTRY METHOD 01/18/2025 6:10 PM EDT [facility] Blood Venous blood specimen / Unknown Venipuncture / Unknown 01/18/2025 5:21 PM EDT 01/18/2025 5:46 PM EDT Narrative [facility] - 01/18/2025 6:10 PM EDT High levels of biotin in samples may falsely decrease hsTroponin values. ??Use caution when interpreting hsTroponin results in patients taking biotin who exhibit renal impairment (eGFR <60) or in patients taking more than 20 mg/day of biotin. Carlos Tucker MD LAB BLOOD ORDERABLES Final Result Performing Organization Address [facility] Co de Phone Number [facility] [address] [place] [address], [place] [phone] * (ABNORMAL) CBC auto differential (01/18/2025 5:21 PM EDT) [facility] WBC 4.6(L) 4.8 - 10.8 K/mcL LAB HEMETOLOGY METHOD 01/18/2025 5:56 PM EDT [facility] RBC 4.70 4.50 - 5.50 M/mcL LAB HEMETOLOGY METHOD 01/18/2025 5:56 PM EDT [facility] Hemoglobin 14.2 13.5 - 17.5 g/dL LAB HEMETOLOGY METHOD 01/18/2025 5:56 PM EDT [facility] Hematocrit 43.8 42.0 - 54.0 % LAB HEMETOLOGY METHOD 01/18/2025 5:56 PM EDT [facility] MCV 94.2 79.0 - 98.0 FL LAB HEMETOLOGY METHOD 01/18/2025 5:56 PM EDT [facility] MCH 30.5 27.0 - 32.0 pcg LAB HEMETOLOGY METHOD 01/18/2025 5:56 PM EDT [facility] MCHC 32.4 32.0 - 37.0 g/dL LAB HEMETOLOGY METHOD 01/18/2025 5:56 PM EDT [facility] RDW 12.7 11.0 - 15.0 % LAB HEMETOLOGY METHOD 01/18/2025 5:56 PM EDT [facility] Platelets 268 130 - 400 K/mcL LAB HEMETOLOGY METHOD 01/18/2025 5:56 PM EDT [facility] MPV 10.1 7.0 - 11.0 FL LAB HEMETOLOGY METHOD 01/18/2025 5:56 PM EDT [facility] NRBC 0.0 <1.0 % LAB HEMETOLOGY METHOD 01/18/2025 5:56 PM EDT [facility] NRBC Absolute 0.00 <0.10 K/mcL LAB HEMETOLOGY METHOD 01/18/2025 5:56 PM EDT [facility] Neutrophils Relative 42.2 % LAB HEMETOLOGY METHOD 01/18/2025 5:56 PM EDT [facility] Lymphocytes Relative 41.4 % LAB HEMETOLOGY METHOD 01/18/2025 5:56 PM EDT [facility] Monocytes Relative 14.2 % LAB HEMETOLOGY METHOD 01/18/2025 5:56 PM EDT [facility] Eosinophils Relative 1.3 % LAB HEMETOLOGY METHOD 01/18/2025 5:56 PM EDT [facility] Basophils Relative 0.7 % LAB HEMETOLOGY METHOD 01/18/2025 5:56 PM EDT [facility] Immature Granulocytes Relative 0.2 % LAB HEMETOLOGY METHOD 01/18/2025 5:56 PM EDT [facility] Neutrophils Absolute 1.93 1.50 - 7.00 K/mcL LAB HEMETOLOGY METHOD 01/18/2025 5:56 PM EDT [facility] Lymphocytes Absolute 1.89 1.00 - 5.00 K/mcL LAB HEMETOLOGY METHOD 01/18/2025 5:56 PM EDT [facility] Monocytes Absolute 0.65 0.20 - 1.00 K/mcL LAB HEMETOLOGY METHOD 01/18/2025 5:56 PM EDT [facility] Eosinophils Absolute 0.06 0.00 - 0.50 K/mcL LAB HEMETOLOGY METHOD 01/18/2025 5:56 PM T [facility] Basophils Absolute 0.03 0.00 - 0.20 K/mcL LAB HEMETOLOGY METHOD 01/18/2025 5:56 PM EDT [facility] Immature Granulocytes Absolute 0.01 0.00 - 0.03 K/mcL LAB HEMETOLOGY METHOD 01/18/2025 5:56 PM [facility] Blood Venous blood specimen / Unknown Venipuncture / Unknown 01/18/2025 5:21 PM EDT 01/18/2025 5:46 PM EDT us Carlos Tucker MD LAB BLOOD ORDERABLES Final Result Performing Organization Address [facility] de Phone Number [facility] [address] [place] [address], [place] [phone] * Magnesium (01/18/2025 5:21 PM EDT) [facility] Magnesium 2.2 1.9 - 2.6 mg/dL LAB CHEMISTRY METHOD 01/18/2025 6:10 PM EDT [facility] Blood Venous blood specimen / Unknown Venipuncture / Unknown 01/18/2025 5:21 PM EDT 01/18/2025 5:46 PM EDT Carlos Tucker MD LAB BLOOD ORDERABLES Final Result Performing Organization Address [facility] de Phone Number [facility] [address] [place] [address], [place] [phone] * Lipase (01/18/2025 5:21 PM EDT) [facility] Lipase 41 13 - 75 unit/L LAB CHEMISTRY METHOD 01/18/2025 6:10 PM EDT [facility] Blood Venous blood specimen / Unknown Venipuncture / Unknown 01/18/2025 5:21 PM EDT 01/18/2025 5:46 PM EDT Carlos Tucker MD LAB BLOOD ORDERABLES Final Result Performing Organization Address [facility] Co de Phone Number [facility] [address] [place] [address], [place] [phone] * (ABNORMAL) Comprehensive metabolic panel (01/18/2025 5:21 PM EDT) [facility] Sodium 137 133 - 145 mmol/L LAB CHEMISTRY METHOD 01/18/2025 6:10 PM EDT [facility] Potassium 3.8 3.5 - 5.5 mmol/L LAB CHEMISTRY METHOD 01/18/2025 6:10 PM [facility] Chloride 104 96 - 110 mmol/L LAB CHEMISTRY METHOD 01/18/2025 6:10 PM [facility] CO2 27 21 - 32 mmol/L LAB CHEMISTRY METHOD 01/18/2025 6:10 PM [facility] Anion Gap 6 3 - 11 LAB CHEMISTRY METHOD 01/18/2025 6:10 PM [facility] Glucose 91 70 - 100 mg/dL LAB CHEMISTRY METHOD 01/18/2025 6:10 PM [facility] BUN 18 5 - 25 mg/dL LAB CHEMISTRY METHOD 01/18/2025 6:10 PM [facility] Creatinine 0.99 0.70 - 1.30 mg/dL LAB CHEMISTRY METHOD 01/18/2025 6:10 PM [facility] eGFR 92 >=60 mL/min/1. 73m2 LAB CHEMISTRY METHOD 01/18/2025 6:10 PM [facility] Comment:Calculation based on the??Chronic Kidney Disease Epidemiology Collaboration (CKD-EPI) equation refit??without adjustment for race. BUN/Creatinine Ratio 18.2 LAB CHEMISTRY METHOD 01/18/2025 6:10 PM [facility] Calcium 9.4 8.5 - 10.5 mg/dL LAB CHEMISTRY METHOD 01/18/2025 6:10 PM [facility] AST (SGOT) 47(H) 10 - 42 unit/L LAB CHEMISTRY METHOD 01/18/2025 6:10 PM [facility] ALT (SGPT) 45 10 - 60 unit/L LAB CHEMISTRY METHOD 01/18/2025 6:10 PM [facility] Alkaline Phosphatase 127(H) 42 - 121 unit/L LAB CHEMISTRY METHOD 01/18/2025 6:10 PM [facility] Total Protein 7.4 6.0 - 8.0 g/dL LAB CHEMISTRY METHOD 01/18/2025 6:10 PM EDT [facility] Albumin 4.2 3.2 - 5.0 g/dL LAB CHEMISTRY METHOD 01/18/2025 6:10 PM EDT [facility] Total Bilirubin 0.6 0.0 - 1.4 mg/dL LAB CHEMISTRY METHOD 01/18/2025 6:10 PM EDT [facility] Blood Venous blood specimen / Unknown Venipuncture / Unknown 01/18/2025 5:21 PM EDT 01/18/2025 5:46 PM EDT Carlos Tucker MD LAB BLOOD ORDERABLES Final Result Performing Organization Address City/[facility]/ZIP Co de Phone Number [facility] [address] [place] [address], [place] [phone] * ECG 12 lead (01/18/2025 4:23 PM EDT) Ventricular Rate ECG 83 BPM GEMUSE Atrial Rate 83 BPM GEMUSE P-R Interval 152 ms GEMUSE QRS Duration 80 ms GEMUSE Q-T Interval 364 ms GEMUSE QTc 427 ms GEMUSE P Wave [place] 61 degrees GEMUSE R [place] 33 degrees GEMUSE T [place] 3 degrees GEMUSE ECG Interpretation Normal sinus rhythm Minimal voltage criteria for LVH, may be normal variant ( Sokolow-Franco ) When compared with ECG of 12-APR-2017 19:42, No significant change was found Confirmed by YURI HARDIN ([id number]) on 01/18/2025 5:48:35 PM GEMUSE 01/18/2025 4:23 PM EDT 01/18/2025 5:48 PM EDT Carlos Tucker MD ECG ORDERABLES Final Resul t GEMUSE * Polysomnography (12/27/2024 1:29 PM EDT) Historical Provider [facility] ORDERABLES F inal Result * Colonoscopy (01/07/2021) Colonoscopy Normal, Abstracted Anatomical Region Laterality Modality Other Historical Provider HEALTH MAINTENANCE Final Result * HIV Screening (08/08/2013) HIV Screening Abstracted [facility] Provider HEALTH MAINTENANCE Final Result * Hepatitis C Screening (08/08/2013) Hepatitis C Screening Abstracted Historical Provider HEALTH MAINTENANCE Final Result from Last 3 Months or Most Recently Relevant to Health Maintenance Insurance [employer] Care Teams Video Journalist Relationship Specialty Start Date End Date Marcos Wilson MD [address] [place] [address] PCP - General Internal Medicine 04/18/22
== END 2025-03-14 09:21 | disposition home or self-care (01) ==
LOC: HO.HPS 08:30
PROVIDERS: PCP Internal Medicine; Visit Provider Hospitalist
DX: J44.89 Other specified chronic obstructive pulmonary disease (principal); R06.09 Other forms of dyspnea; J45.50 Severe persistent asthma, uncomplicated
CPT/HCPCS: 94010; 99214

== ENCOUNTER → 2025-03-14 08:29 | Outpatient (BNVA) | payer BC, SELFPAY | PROVIDERS: PCP Internal Medicine; Visit Provider Hospitalist | DX: J45.50 Severe persistent asthma, uncomplicated (principal); J44.89 Other specified chronic obstructive pulmonary disease; R06.09 Other forms of dyspnea | CPT/HCPCS: 94010 ==

== ENCOUNTER 2025-06-06 15:28 | Outpatient (AMB) | payer BC, SELFPAY ==
[2025-06-06 15:29] VITALS: BP 116/82; PULSE 89; O2SAT 96; BMI 31.5
--- NOTE | 2025-06-06 15:29 | MHC.OFFVIS ---
Vital Signs 06/06/25 15:29 Height 5 ft 8 in Weight 207 lb 3.752 oz BMI 31.5 BP 116/82 Blood Pressure Location Lt brachial Position Sitting Pulse 89 Pulse Source Pulse Oximeter Pulse Oximetry (%) 96 Oxygen Delivery Method Room Air Intake Visit Reasons: Asthma Direct Marketing Executive Required: No Allergies shellfish derived Allergy (Intermediate, Verified 06/06/25 15:33) Anaphylaxis HPI Comments Details: The patient is a 49-year-old gentleman with known severe persistent asthma who presents with ongoing wheezing shortness of breath and chest tightness. The patient does follow closely with allergy and immunology. Over the summer in April was having hard time and the patient did undergo pulmonary function studies. They were done at [place]. I did personally view them. Appeared that he had a significant obstructive ventilatory defect primarily in the post bronchodilator numbers along with severe small airways disease consistent with severe persistent asthma. In addition to that he did have a restrictive ventilatory defect. Therefore he was sent for CT scan of the chest which I personally reviewed. The patient did have a dilated esophagus with debris suggesting the possibility of microaspiration. In addition to that the patient did have evidence of bronchitis and some atelectasis and mucus plugging primarily in the lingula. On further questioning he states that he has been some difficulty swallowing. He also complains of dyspepsia. He was recently started on omeprazole which seems to be helping. He also has a positional bed and sleeps elevated. We did talk about the reflux diet and is also trying to do that. He is going to continue to limit certain things that activate his symptoms. He had started Tezspire about 2 months ago. Seems to be tolerating it inhaled has been on Breztri inhaler which she takes twice a day. But event that he requires his rescue inhaler or nebulizer couple times a day at least. Even with minimal activity and exercise he becomes significantly winded. Will go ahead and try to maximize his respiratory therapy switching over to nebulized therapy. In addition to that will further address the esophageal issue as a potential precipitants feel his asthma symptoms. Also to note the patient does have some daytime drowsiness. [place] score is elevated 07/28. He did recently have a home sleep study per report which was considered normal. Prior to that he had a sleep study that was abnormal. 03/14/2025 the patient is here for pulmonary follow-up visit. Overall the patient is doing better. He has been responding well to the Brovana and budesonide. He has not requiring additional medication. Although he still has episodes of shortness of breath. Sometimes he feels that he has lung capacity is very limited and worries him a he gets anxious. He feels like that also makes his breathing worse. His swallow still an issue. We did do a barium swallow demonstrating some mild dysmotility but at least no significant reflux appreciated. He continues to follow the reflux diet and make sure ensure that he sleep elevated to minimize symptoms. He continues on the Tezspire. Therefore will continue the therapy at this time. We did have him repeat these spirometry demonstrating significant improvement is FVC improved from 50% to 83% and his FEV1 improved from 48% to 58%. He is going to increase the Spiriva to 2 inhalations daily continue with the Brovana budesonide and continue with the Tezspire. He does complaint of mucus buildup in the back of the throat. Will try him on a 5 day course of azithromycin to see this provides some relief. He is already taking hallucinated therapies with kaushik, [place] and honey is also using Mucinex as needed. Will follow-up in 3 4 months. If he has any issues prior to this he will call for an earlier assessment. 06/06/2025 the patient is here for pulmonary follow-up visit. Overall he seems to be doing better from a respiratory status he continues to do well on the nebulized therapy. Although he still complains of chest congestion and difficult to expectorate. He has constant clearing his throat. He does use fluticasone nasal spray he does have significant congestion of the nasal passages and evidence of postnasal drip. Therefore will go ahead and have him start Sudafed to see this relieve some of the congestion. The patient also has a mucus burden when we looked at his CT scan of the chest primarily the trachea and the central airways. An Acapella valve will help as a fluttering device to help clear the mucus burden. If the patient continues to be symptomatic we can plan for bronchoscopy for an airway survey and deep cultures as well as to try to alleviate some of the discomfort. The patient also completed a course of azithromycin. Will go ahead and start him on doxycycline with the plan of hopefully clearing up some of the bacterial colonization that is resulting in increased mucus buildup. [facility] Medical History (Updated 06/06/25 @ 22:18 by Brent Wallace MD) Chronic allergic rhinitis Asthma Dyspnea Asthma-COPD overlap syndrome Social History Patient Tobacco Use Status: Never used Tobacco Review of Systems Const Denies fever(s) Eyes Reports no additional complaints ENT Reports nasal congestion, Reports nasal obstruction and Reports post nasal drip Card Denies chest pain and Reports dyspnea on exertion Resp Reports cough, Reports dyspnea on exertion and Reports wheezing GI Reports dyspepsia Musc Reports no additional complaints Skin/Breast Denies rash Endo Reports no additional complaints Romero/Lymph Reports no additional complaints Aller/Immun Reports wheezing Physical Exam Vital Signs: Last Vital Signs Pulse 89 06/06/25 15:29 BP 116/82 06/06/25 15:29 Pulse Ox 96 06/06/25 15:29 Oxygen Delivery Method Room Air 06/06/25 15:29 BMI result Body Mass Index 31.5 Const General: comfortable HEENT Head: Yes normocephalic General nose exam: Abnormal mucous membranes and turbinates present boggy Neck Neck: Yes supple Chest Chest palpation & inspection: normal inspection of the chest Resp Effort & Inspection: normal respiratory effort Auscultation: diminished lung sounds Cardio Heart sounds: S1 normal heart sound present and S2 normal heart sound present GI Palpation (GI): Soft to palpation Skin General skin exam: no rashes or lesions noted Extrem General: Yes no clubbing, cyanosis or edema Assessment & Plan Assessment & Plan (1) Asthma-COPD overlap syndrome: Code(s): J44.89 - Other specified chronic obstructive pulmonary disease Category: Medical (2) Dyspnea: Code(s): R06.00 - Dyspnea, unspecified Category: Medical Qualifiers: Dyspnea type: dyspnea on exertion Qualified Code(s): R06.09 - Other forms of dyspnea (3) Asthma: Code(s): J45.909 - Unspecified asthma, uncomplicated Category: Medical Qualifiers: Asthma complication type: uncomplicated Asthma persistence: persistent Asthma severity: severe Qualified Code(s): J45.50 - Severe persistent asthma, uncomplicated (4) Chronic allergic rhinitis: Code(s): J30.9 - Allergic rhinitis, unspecified Category: Medical Plan Brovana BID Budesonide BID Spiriva Respimet ANNEMARIE as needed Reflux diet HOB elevated Continue PPI continue Tezspire start Doxycycline start pseudophed, monitor BP neti bottle rinsing continue fluticasone nasal spray Consider bronchosocpy Start CPT with acapella valve F/U 3-4 months Medications: New doxycycline hyclate 100 mg PO BID 20 caps 0RF 10 days pseudoephedrine HCl ER 120 mg PO Q12H 60 tabs 3RF 30 days Coding Level of Care Code Est Pt Level 4 (72180) Complex EM visit Add On G2211 Diagnoses Asthma-COPD overlap syndrome J44.89 Dyspnea on exertion R06.09 Dyspnea type: dyspnea on exertion Severe persistent asthma without complication J45.50 Asthma complication type: uncomplicated Asthma persistence: persistent Asthma severity: severe Chronic allergic rhinitis J30.9 Time Spent (min) 17
--- OUTSIDE RECORDS SUMMARY | 2025-06-06 16:29 | XMS_ITS | Clinical Summary ---
Author Organization [facility] Address [address] [place] [id number] Care Team Providers Care Aircraft Engine Cylinder Mechanic Name Role Phone Maximo Little MD Primary Care Provider [phone] Allergies Active Allergy Reactions Criticality Noted Date [...] 94 04/03/2020 3:02 PM EDT Temperature 36.3 C (97.4 F) 04/03/2020 3:02 PM EDT Respiratory Rate - - Oxygen Saturation - [...] of 2) 2023 COVID-19 Vaccine ( season) 2025 10/16/2021, 09/09/2021 Influenza Vaccine (#1) 2025 1, 12/12/2014, 08/08/2013, Additional history exists DTap / Tdap / Td (3 - Td or Tdap) 12/08/2027 12/07/2017, 08/23/2008 Pneumococcal Vaccine Aged Out 08/08/1994 No long er eligible based on patient's age to complete this topic RSV Ped < 20 months Aged Out No longe r eligible based on patient's age to complete this topic Care Teams Aircraft Engine Cylinder Mechanic Relationship Specialty Start Date End Date Maximo Little MD PCP - General Internal Medicine 04/27/19
--- OUTSIDE RECORDS SUMMARY | 2025-06-06 16:29 | XMS_ITS | Clinical Summary ---
Author Organization [facility] Address [address] [place] [address] Phone Care Team Providers Care Plant And Machinery Valuer Name Role Phone Marcos Wilson MD Primary Care Provider [phone] Allergies Active Allergy Reactions Criticality Noted Date Comments House Dust 07/23/2011 Dust Pollen Extracts 07/23/2011 Pollen Shellfish Derived Anaphylaxis High 08/27/2005 Medications cholecalciferol (VITAMIN D-3) 50 mcg (2,000 unit) tablet Take 1 Tablet by mouth daily. 4 Active EPINEPHrine (EpiPen 2-Natalio) 0.3 mg/0.3 mL [...] times daily as needed for Pain. Active ipratropium-alb uteroL (DUONEB) 0.5-2.5 mg/3 mL nebulizer solution Take 3 mL by nebulization every 6 (six) hours if needed for wheezing. 300 mL 3 4 Active fluticasone propionate (FLONASE) 50 mcg/actuation nasal [...] each day. 90 tablet 1 5 Active arformoteroL (BROVANA) 15 mcg/2 mL nebulizer solution 5 Active Tezspire 210 mg/1.91 mL (110 mg/mL) injection Inject 210 mg under the skin every 28 (twenty-eight) days. 5 Active Spiriva Respimat 2.5 mcg/actuation inhalation spray Inhale 2 puffs by mouth 1 (one) time each day. 5 Active tiZANidine (ZANAFLEX) 4 mg tablet Take by mouth. 5 Active losartan (Cozaar) 50 mg tablet Take 1 tablet (50 mg total) by mouth 1 (one) time each day. 90 each 1 5 Active sildenafiL (VIAGRA) 50 mg tablet TAKE 1 TABLET BY MOUTH 30 MINUTES BEFORE INTERCOURSE NEEDED 10 tablet 4 5 Active albuterol HFA (Ventolin HFA) 90 mcg/actuation inhaler Inhale 2 puffs by mouth every 4 (four) hours if needed for wheezing or shortness of breath. 8 g 5 5 03/10/20 26 Active Active Problems Problem Noted Date Diagnosed [...] for better LV function assessment. Cyclic neutropenia ([facility] V24, [facility] V28) Allergic rhinitis 06/23/2019 Carpal tunnel syndrome 03/09/2019 Severe persistent asthma ([facility] V28) 9 Environmental and seasonal allergies 01/28/2019 Overview (08/08/2024): Cats/dog dander, house mites, shellfish Severe obesity (BMI 35.0-35. 9 with comorbidity) ([facility] V24, [facility] V28) 01/28/2019 Cervical radiculopathy 12/08/2018 Elevated liver enzymes 08/20/2018 Gastroesophageal reflux disease without esophagi tis 06/30/2018 Bursitis of right hip 01/27/2018 Lumbar degenerative disc disease 12/03/2016 Overview (08/08/2024): Xray in [facility] 11/30/2016 showing degenerative chnages with 6mm retrolisthesis of L5 - S1. Chest pain 07/07/2014 Overview (08/08/2024): neg ETT 07/2014 Erectile dysfunction 07/07/2014 Hyperlipidemia 06/23/2014 Arcus senilis 09/04/2008 Immunizations Name Administration Dates Next Due Influenza [...] Surgery Date Site/Laterality Comments NOSE SURGERY PROCEDURE: PA UNLISTED PROCEDURE NOSE; COMMENT: septoplasty 2009 WISDOM TOOTH EXTRACTION PROCEDURE: HISTORICAL WISDOM TEETH EXTRACTION OTHER SURGICAL HISTORY 02/2022 Right PROCEDURE: PA ARTHRP ACETBLR/PROX FEM PROSTC AGRFT/ALGRFT; COMMENT: Dr. [...] 78 01/19/2025 9:00 AM EDT Temperature 37 C (98.6 F) 01/18/2025 5:59 PM EDT Respiratory Rate 16 [...] - Pfizer risk series) 11/13/2021 10/16/2021, 09/09/2021 Social Influencers of Health Screening 09/13/2022 Depression Screening 10/05/2024 Influenza Vaccine (#1) 2025 , 10/22/2020, 11/04/2017, Additional history exists Colorectal Cancer [...] Procedure Name Priority Date/Time Associated Diagnosis Comments LIPID PANEL WITH REFLEX TO DIRECT LDL Routine 02/13/2025 12:55 PM EDT Mixed hyperlipidemia COMPREHENSIVE METABOLIC PANEL STAT 01/18/2025 5:21 PM EDT COLONOSCOPY Routine 01/07/2021 HEPATITIS C SCREENING Routine 08/08/2013 HIV SCREENING Routine 08/08/2013 from Last 3 Months or Most Recently Relevant to Health Maintenance Results * Lipid panel with reflex to direct LDL (02/13/2025 12:55 PM EDT) Cholesterol 152 0 - 200 mg/dL LAB CHEMISTRY METHOD 02/13/2025 4:16 PM EDT [facility] Triglycerides 50 0 - 150 mg/dL LAB CHEMISTRY METHOD 02/13/2025 4:16 PM EDT [facility] HDL 51 >=40 mg/dL LAB CHEMISTRY METHOD 02/13/2025 4:16 PM EDT [facility] LDL Calculated 91 0 - 100 mg/dL LAB CHEMISTRY METHOD 02/13/2025 4:16 PM EDT [facility] VLDL Cholesterol Jono 10 mg/dL LAB CHEMISTRY METHOD 02/13/2025 4:16 PM EDT [facility] Non HDL Chol. (LDL+VLDL) 101 <145 mg/dL LAB CHEMISTRY METHOD 02/13/2025 4:16 PM EDT [facility] Chol/HDL Ratio 3.0 0.0 - 4.4 LAB CHEMISTRY METHOD 02/13/2025 4:16 PM [facility] Blood Venous blood specimen / Unknown Venipuncture / Unknown 02/13/2025 12:55 PM EDT 02/13/2025 12:55 PM EDT us Marcos Wilson MD LAB BLOOD ORDERABLES Final Result [facility] [address] [place] [address], [place] [phone] * (ABNORMAL) Comprehensive metabolic panel (01/18/2025 5:21 PM EDT) Sodium 137 133 - 145 mmol/L LAB CHEMISTRY METHOD 01/18/2025 6:10 PM [facility] Potassium 3.8 3.5 - 5.5 mmol/L LAB CHEMISTRY METHOD 01/18/2025 6:10 PM [facility] Chloride 104 96 - 110 mmol/L LAB CHEMISTRY METHOD 01/18/2025 6:10 PM [facility] CO2 27 21 - 32 mmol/L LAB CHEMISTRY METHOD 01/18/2025 6:10 PM [facility] Anion Gap 6 3 - 11 LAB CHEMISTRY METHOD 01/18/2025 6:10 PM [facility] Glucose 91 70 - 100 mg/dL LAB CHEMISTRY METHOD 01/18/2025 6:10 PM [facility] BUN 18 5 - 25 mg/dL LAB CHEMISTRY METHOD 01/18/2025 6:10 PM [facility] Creatinine 0.99 0.70 - 1.30 mg/dL LAB CHEMISTRY METHOD 01/18/2025 6:10 PM [facility] eGFR 92 >=60 mL/min/1. 73m2 LAB CHEMISTRY METHOD 01/18/2025 6:10 PM [facility] Comment:Calculation based on the Chronic Kidney Disease Epidemiology Collaboration (CKD-EPI) equation refit without adjustment for race. BUN/Creatinine Ratio 18.2 LAB CHEMISTRY METHOD 01/18/2025 6:10 PM [facility] Calcium 9.4 8.5 - 10.5 mg/dL LAB CHEMISTRY METHOD 01/18/2025 6:10 PM [facility] AST (SGOT) 47(H) 10 - 42 unit/L LAB CHEMISTRY METHOD 01/18/2025 6:10 PM [facility] ALT (SGPT) 45 10 - 60 unit/L LAB CHEMISTRY METHOD 01/18/2025 6:10 PM [facility] Alkaline Phosphatase 127(H) 42 - 121 unit/L LAB CHEMISTRY METHOD 01/18/2025 6:10 PM [facility] Total Protein 7.4 6.0 - 8.0 g/dL LAB CHEMISTRY METHOD 01/18/2025 6:10 PM [facility] Albumin 4.2 3.2 - 5.0 g/dL LAB CHEMISTRY METHOD 01/18/2025 6:10 PM [facility] Total Bilirubin 0.6 0.0 - 1.4 mg/dL LAB CHEMISTRY METHOD 01/18/2025 6:10 PM [facility] Blood Venous blood specimen / Unknown Venipuncture / Unknown 01/18/2025 5:21 PM EDT 01/18/2025 5:46 PM EDT Carlos Tucker MD LAB BLOOD ORDERABLES Final Result [facility] [address] [place] [address], * Colonoscopy (01/07/2021) Colonoscopy Normal, Abstracted Anatomical Region Laterality Modality Other Historical Provider HEALTH MAINTENANCE Final Result * HIV Screening (08/08/2013) HIV Screening Abstracted us Historical Provider HEALTH MAINTENANCE Final Result * Hepatitis C Screening (08/08/2013) Hepatitis C Screening Abstracted us Historical Provider HEALTH MAINTENANCE Final Result from Last 3 Months or Most Recently Relevant to Health Maintenance Insurance [facility] Care Teams Plant And Machinery Valuer Relationship Specialty Start Date End Date Marcos Wilson MD [address] [place] [address] PCP - General Internal Medicine 04/18/22
== END 2025-06-06 16:02 | disposition home or self-care (01) ==
LOC: HO.HPS 15:28
PROVIDERS: PCP Internal Medicine; Visit Provider Hospitalist
DX: J44.89 Other specified chronic obstructive pulmonary disease (principal); R06.09 Other forms of dyspnea; J45.50 Severe persistent asthma, uncomplicated; J30.9 Allergic rhinitis, unspecified
CPT/HCPCS: 99214

== ENCOUNTER 2025-08-24 15:03 | Outpatient (AMB) | payer BC, SELFPAY ==
--- NOTE | 2025-08-24 15:03 | A.PHYSOV_ITS ---
Vital Signs 08/24/25 15:05 Height 5 ft 9 in Weight 205 lb BMI 30.3 Intake Visit Reasons: 3M FUV Intake Note: Patient is a 49 year old male in office for his 3 month medication management visit. Facilities Operations Technician Required: No Allergies shellfish derived Allergy (Intermediate, Verified 08/24/25 15:03) Anaphylaxis HPI Comments Details: History of Present Illness The patient is a 49-year-old individual presenting with chronic low back pain and advanced degenerative changes in the right hip. The chronic low back pain has been persistent, and the patient has been receiving oxycodone for pain management, which provides a 60 to 70% reduction in pain and improves quality of life. 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 The advanced degenerative changes in the right hip were diagnosed previously, and the patient received an intraarticular injection with limited benefit. The patient experiences pain with internal rotation of the right hip, and lumbar extension is restricted. The patient reports right shoulder impingement, which worsens when sleeping on the affected side, causing nighttime discomfort. The patient has a history of left shoulder tendonitis, previously treated with an injection, which has been stable. Pain Description - Chronic low back pain with 60 to 70% reduction in symptoms with oxycodone - Right hip pain with restricted internal rotation and lumbar extension - Right shoulder pain exacerbated by sleeping on the affected side Results [facility] Medical History (Updated 08/24/25 @ 15:17 by Yordy Bishop DO) Chronic pain syndrome Lumbar radiculitis Degenerative joint disease of right hip Rotator cuff impingement syndrome of right shoulder Rotator cuff impingement syndrome of left shoulder Chronic allergic rhinitis Asthma Dyspnea Asthma-COPD overlap syndrome Surgical History History of total hip replacement (Unknown) Social History (Updated 08/24/25 @ 15:06 by Mallika Cartagena MA) Household Members: Spouse Alcohol intake: current Alcohol intake frequency: holidays/special occasions only Patient Tobacco Use Status: Never used Tobacco Current occupational status: employed Current occupation: full time paramedic Review of Systems Narrative Review of Systems - Musculoskeletal: Reports chronic low back pain, right hip pain, right shoulder pain, and left shoulder tendonitis - Gastrointestinal: Denies changes in bowel habits - General: Denies fever or chills - Psychiatric: Denies uncontrolled depression or suicidal ideation Physical Exam Exam Exam: Physical Exam - General: Patient appears in acute distress, appropriately conversant and oriented - Gait: Normal without antalgia - Musculoskeletal: Pain with internal rotation of the right hip, restricted internal rotation of the right hip, tenderness to palpation over right sacroiliac sulcus - Neurological: Non-focal examination, negative dural tension signs, no upper motor neuron signs - Right Shoulder: Restricted abduction with painful endpoint, positive Richards and Neer signs, negative drop arm test, negative shoulder apprehension test Vital Signs: BMI result Body Mass Index 30.3 Assessment & Plan Assessment & Plan (1) Rotator cuff impingement syndrome of left shoulder: Code(s): M75.42 - Impingement syndrome of left shoulder Category: Medical (2) Rotator cuff impingement syndrome of right shoulder: Code(s): M75.41 - Impingement syndrome of right shoulder Category: Medical (3) Degenerative joint disease of right hip: Code(s): M16.11 - Unilateral primary osteoarthritis, right hip Category: Medical Qualifiers: Osteoarthritis type: primary Qualified Code(s): M16.11 - Unilateral primary osteoarthritis, right hip (4) Lumbar radiculitis: Code(s): M54.16 - Radiculopathy, lumbar region Category: Medical (5) Chronic pain syndrome: Code(s): G89.4 - Chronic pain syndrome Category: Medical Plan Pain Management - Affect: Pain impacts quality of life but is managed with medication - Analgesia: Oxycodone provides 60 to 70% pain reduction - Adverse Effects: None reported - Activities of Daily Living: Patient continues to work full-time and exercise - Aberrant Drug Related Behaviors: None reported Plan Patient was informed and verbally consented to the use of an ambient scribe for clinic note documentation during this visit. 1. Chronic Low Back Pain The patient continues to manage chronic low back pain with oxycodone, achieving a 60 to 70% reduction in symptoms, which allows for a better quality of life and continued employment. The patient is advised to continue regular exercise and turmeric supplementation as part of the pain management strategy. 2. Advanced Degenerative Changes In The Right Hip The patient has advanced degenerative changes in the right hip, previously treated with an intraarticular injection that provided limited relief. The patient is encouraged to monitor symptoms and consider further interventions if pain worsens. 3. Right Shoulder Impingement The patient reports right shoulder impingement, particularly exacerbated by sleeping on the affected side. The patient is advised to avoid sleeping on the right side and to consider further evaluation if symptoms persist. Scapular stabilization strengthening exercises were discussed. 4. Left Shoulder Tendonitis The patient has a history of left shoulder tendonitis, which has been stable following a previous injection. No new interventions are currently planned unless symptoms change. Discussion Notes During the visit, we discussed the management of the patient's chronic low back pain and advanced degenerative changes in the right hip. The patient was advised to continue with current medications and lifestyle modifications, including exercise and turmeric supplementation. We also reviewed the patient's shoulder conditions, advising avoidance of exacerbating positions and monitoring for any changes. Patient Instructions - Continue taking oxycodone as prescribed for pain management. - Maintain regular exercise and turmeric supplementation. - Avoid sleeping on the right shoulder to prevent impingement symptoms. - Monitor symptoms and contact the clinic if pain worsens or new symptoms develop. Coding Level of Care Code Est Pt Level 3 (34933) Complex visit Add On G2211 Diagnoses Rotator cuff impingement syndrome of left shoulder M75.42 Rotator cuff impingement syndrome of right shoulder M75.41 Primary osteoarthritis of right hip M16.11 Osteoarthritis type: primary Lumbar radiculitis M54.16 Chronic pain syndrome G89.4
[2025-08-24 15:05] VITALS: BMI 30.3
--- OUTSIDE RECORDS SUMMARY | 2025-08-24 20:26 | XMS_ITS | Clinical Summary ---
Author Organization [address] [facility] Address [address] [place] [address] Phone Care Team Providers Care Engraver Tire Mold Name Role Phone Marcos Wilson MD Primary Care Provider [phone] Allergies Active Allergy Reactions Criticality Noted Date Comments House Dust 07/23/2011 Dust Pollen Extracts 07/23/2011 Pollen Shellfish Derived Anaphylaxis High 08/27/2005 Medications cholecalcifer ol (VITAMIN D-3) 50 mcg (2,000 unit) tablet [...] (ONE-A-DAY ESSENTIAL ORAL) 1 tab qd Active oxyCODONE-chao taminophen (PERCOCET) 10-325 mg per tablet Take 1 Tablet by mouth 2 times daily as needed for Pain. Active ipratropium-a lbuteroL (DUONEB) 0.5-2.5 mg/3 mL nebulizer solution Take [...] chew. 90 capsule 3 11/09/19 25 Active arformoteroL (BROVANA) 15 mcg/2 mL nebulizer solution 01/14/20 Active Tezspire 210 mg/1.91 mL (110 mg/mL) injection Inject 210 mg under the skin every 28 (twenty-eight) days. 01/14/20 25 Active Spiriva Respimat 2.5 mcg/actuation inhalation spray Inhale 2 puffs by mouth 1 (one) time each day. 01/14/20 25 Active tiZANidine (ZANAFLEX) 4 mg tablet Take by mouth. 12/30/19 25 Active albuterol HFA (Ventolin HFA) 90 mcg/actuation inhaler Inhale 2 puffs by mouth every 4 (four) hours if needed for wheezing or shortness of breath. 8 g 5 03/10/20 25 026 Active atorvastatin (LIPITOR) 20 mg tablet Take 1 tablet (20 mg total) by mouth 1 (one) time each day. 90 tablet 1 08/07/20 25 Active losartan (COZAAR) 50 mg tablet Take 1 tablet (50 mg total) by mouth 1 (one) time each day. 90 tablet 1 08/07/20 25 Active sildenafiL (VIAGRA) 50 mg tablet TAKE ONE TABLET BY MOUTH 30 MINUTES PRIOR TO INTERCOURSE NEEDED 15 tablet 4 08/15/20 25 Active budesonide-gl ycopyr-formot frannie (Breztri Aerosphere) 160-9-4.8 mcg/actuation HFA aerosol inhaler inhaler Inhale 2 puffs by mouth 2 (two) times a day. 1 each 12 11/09/19 25 025 Discontinued atorvastatin (LIPITOR) 20 mg tablet Take 1 tablet (20 mg total) by mouth 1 (one) time each day. 90 tablet 1 11/09/19 25 025 Discontinued(R eorder) sildenafiL (VIAGRA) 50 mg tablet TAKE 1 TABLET BY MOUTH 30 MINUTES BEFORE INTERCOURSE NEEDED 10 tablet 4 02/21/20 25 025 Discontinued losartan (COZAAR) 50 mg tablet TAKE ONE TABLET BY MOUTH ONCE DAILY 30 tablet 07/17/20 25 025 Discontinued(R eorder) Active Problems Problem Noted Date Diagnosed Date [...] for better LV function assessment. Cyclic neutropenia ([facility] V24, [facility] V28) Allergic rhinitis 06/23/2019 Carpal tunnel syndrome 03/09/2019 Severe persistent asthma ([facility] V28) 9 Environmental and seasonal allergies 01/28/2019 Overview (08/08/2024): Cats/dog dander, house mites, shellfish Severe obesity (BMI 35.0-35. 9 with comorbidity) ([facility] V24, [facility] V28) 01/28/2019 Cervical radiculopathy 12/08/2018 Elevated liver enzymes 08/20/2018 Gastroesophageal reflux disease without esophagi tis 06/30/2018 Bursitis of right hip 01/27/2018 Lumbar degenerative disc disease 12/03/2016 Overview (08/08/2024): [facility]ray [facility] 11/30/2016 showing degenerative chnages with 6mm retrolisthesis of L5 - S1. Chest pain 07/07/2014 Overview (08/08/2024): neg ETT 07/2014 Erectile dysfunction 07/07/2014 Hyperlipidemia 06/23/2014 Alexi senbruno 09/04/2008 Encounters Date Type Department Care Team Description 08/07/2025 3:30 PM EST Office Visit Adult Medicine [address] [phone] Marcos Wilson MD Primary hypertension (Primary Dx); Mixed hyperlipidemia; Asthma-COPD overlap syndrome ([facility] V24, [facility] V28); Prediabetes; Degeneration of intervertebral disc of lumbar region with discogenic back pain from Last 3 Months Immunizations Immunization Administration Dates Next Due Influenza Quadravalent, MDCK [...] Surgery Date Site/Laterality Comments NOSE SURGERY PROCEDURE: OK UNLISTED PROCEDURE NOSE; COMMENT: septoplasty 2009 WISDOM TOOTH EXTRACTION PROCEDURE: HISTORICAL WISDOM TEETH EXTRACTION OTHER SURGICAL HISTORY 02/2022 Right PROCEDURE: [place] ARTHRP ACETBLR/PROX FEM PROSTC AGRFT/ALGRFT; COMMENT: Dr. [...] drink = 0.6 oz pur e alcohol) Housing Instability Answer Date Recorde d Are you worried that in the next 2 months you may not have stable housing? No 08/07/2025 Food Access & Nutrition Answer Date Rec orded Do you have access to a vari ety of food including fruits and vegetables? No 08/07/2025 Access to Healthcare Answer Date Record ed Within the last 3 months, ho claribel many times did you visit the emergency department for your medical care? 0 08/07/2025 Health Literacy Answer Date Recorded How often do you need to hav e someone help you when you read instructions, pamphlets, or other written material from your doctor or pharmacy? Never 08/07/2025 Caregiver: How often do you need to have someone help you when you read instructions, pamphlets, or other written material from your doctor or pharmacy? Not on file 08/07/2025 Financial Risk Answer Date Recorded How hard is it for you to pa y for the very basics like food, housing, medical care, and air conditioning / heating? Not very hard 08/07/2025 Transportation Answer Date Recorded Has the lack of transportati on kept you from meetings, work, or from getting things needed for daily living? No Has the lack of transportati on kept you from medical appointments or from getting medications? No 08/07/2025 Social Isolation Answer Date Recorded How often do you feel lonely or isolated from th ose around you? Never 08/07/2025 Food Risk Answer Date Recorded Within the past 12 months we worried whether our food would run out before we got money to buy more. Never true 08/07/2025 Within the past 12 months th e food we bought just didn't last and we didn't have money to get more. Never true 08/07/2025 Living Situation Answer Date Recorded What is your living situation? Unrecognized valu e 08/07/2025 Sex and Gender Information Value Date Recorded Sex Assigned at Not on file Legal Sex Male 2:08 PM EST Gender Identity Not on file Sexual Orientation Not on file Obstetrics History Last Filed Vital Signs Vital Sign Reading Time Taken Comments Blood Pressure 140/66 08/07/2025 3:45 PM EST Pulse 95 08/07/2025 3:29 PM EST Temperature 36.6 C (97.9 F) 08/07/2025 3:29 PM EST Respiratory Rate 16 01/19/2025 9:00 AM EDT Oxygen Saturation 99% 01/18/2025 5:59 PM EDT Inhaled Oxygen Concentration - - Weight 95.3 kg (210 lb) 08/07/2025 3:29 PM EST Height 175.3 cm (5' 9 ) 08/07/2025 3:29 PM EST Body Mass Index 31.01 08/07/2025 3:29 PM EST Plan of Treatment Upcoming Encounters Date Type Department Care Team (Late st Contact Info) Description 02/12/2026 4:00 PM EDT Office Visit Adult Medicine [address] [phone] Marcos Wilson MD [address] [place] [address] Health Maintenance Due Date Last Done Comments Hepatitis B Vaccines (1 of 3 - 19+ 3-dose series) 1992 Zoster Vaccines (1 of 2) 1992 Pneumococcal Vaccine: 50+ Years (3 of 3 - PCV) 04/04/2011 04/04/2010, 05/31/2006, 08/08/1994 COVID-19 Vaccine (3 - Pfizer risk series) 11/13/2021 10/16/2021, 09/09/2021 RSV Immunization Adult Patients (1 - Risk 50-74 years 1-dose series) 2023 Influenza Vaccine (#1) 2025 2, 10/22/2020, 11/04/2017, Additional history exists Colorectal Cancer Screening: Colonoscopy 01/07/2026 01/07/2021 Hypertension/CHF/CAD Annual BMP Blood Test 01/18/2026 01/18/2025, 06/20/2024, 06/20/2024 Social Influencers of Health Screening 08/07/2026 08/07/2025 DTaP,Tdap,and Td Vaccines (3 - Td or Tdap) 12/08/2027 12/07/2017, 08/23/2008 Cholesterol Screening (Lipid Panel) 02/13/2030 02/13/2025, 05/11/2023 HIV Screening Completed 08/08/2013 Hepatitis C Screening Completed 08/08/2013 Depression Screening Completed 08/07/2025 HIB Vaccines Aged Out No longer eligi [...] LAB CHEMISTRY METHOD 02/13/2025 4:16 PM EDT [facility] Triglycerides 50 0 - 150 mg/dL LAB CHEMISTRY METHOD 02/13/2025 4:16 PM EDT [facility] HDL 51 >=40 mg/dL LAB CHEMISTRY METHOD 02/13/2025 4:16 PM EDT [facility] LDL Calculated 91 0 - 100 mg/dL LAB CHEMISTRY METHOD 02/13/2025 4:16 PM EDT [facility] VLDL Cholesterol Jono 10 mg/dL LAB CHEMISTRY METHOD 02/13/2025 4:16 PM EDT [facility] Non HDL Chol. (LDL+VLDL) 101 <145 mg/dL LAB CHEMISTRY METHOD 02/13/2025 4:16 PM EDT [facility] Chol/HDL Ratio 3.0 0.0 - 4.4 LAB CHEMISTRY METHOD 02/13/2025 4:16 PM EDT [facility] Blood Venous blood specimen / Unknown Venipuncture / Unknown 02/13/2025 12:55 PM EDT 02/13/2025 12:55 PM EDT Marcos Wilson MD LAB BLOOD ORDERABLES Final Result [facility] [address] [place] [address], [place] [phone] * (ABNORMAL) Comprehensive metabolic panel (01/18/2025 5:21 PM EDT) Pathologist [facility] Sodium 137 133 - 145 mmol/L LAB CHEMISTRY METHOD 01/18/2025 6:10 PM EDT [facility] Potassium 3.8 3.5 - 5.5 mmol/L LAB CHEMISTRY METHOD [facility]25 [facility] Chloride 104 96 - 110 mmol/L LAB CHEMISTRY METHOD 01/18/2025 6:10 PM [facility] CO2 27 21 - 32 mmol/L LAB CHEMISTRY METHOD 01/18/2025 6:10 PM [facility] Anion Gap 6 3 - 11 LAB CHEMISTRY METHOD 01/18/2025 6:10 PM [facility] Glucose 91 70 - 100 mg/dL LAB CHEMISTRY METHOD 01/18/2025 6:10 PM [facility] BUN 18 5 - 25 mg/dL LAB CHEMISTRY METHOD 01/18/2025 6:10 PM [facility] Creatinine 0.99 0.70 - 1.30 mg/dL LAB CHEMISTRY METHOD 01/18/2025 6:10 PM [facility] eGFR 92 >=60 mL/min/1. 73m2 LAB CHEMISTRY METHOD 01/18/2025 6:10 PM [facility] Comment:Calculation based on the Chronic Kidney Disease Epidemiology Collaboration (CKD-EPI) equation refit without adjustment for race. BUN/Creatinine Ratio 18.2 LAB CHEMISTRY METHOD 01/18/2025 6:10 PM [facility] Calcium 9.4 8.5 - 10.5 mg/dL LAB CHEMISTRY METHOD 01/18/2025 6:10 PM [facility] AST (SGOT) 47(H) 10 - 42 unit/L LAB CHEMISTRY METHOD 01/18/2025 6:10 PM [facility] ALT (SGPT) 45 10 - 60 unit/L LAB CHEMISTRY METHOD 01/18/2025 6:10 PM [facility] Alkaline Phosphatase 127(H) 42 - 121 unit/L LAB CHEMISTRY METHOD 01/18/2025 6:10 PM [facility] Total Protein 7.4 6.0 - 8.0 g/dL LAB CHEMISTRY METHOD 01/18/2025 6:10 PM EDT [facility] Albumin 4.2 3.2 - 5.0 g/dL LAB CHEMISTRY METHOD 01/18/2025 6:10 PM EDT [facility] Total Bilirubin 0.6 0.0 - 1.4 mg/dL LAB CHEMISTRY METHOD 01/18/2025 6:10 PM EDT [facility] Blood Venous blood specimen / Unknown Venipuncture / Unknown 01/18/2025 5:21 PM EDT 01/18/2025 5:46 PM EDT Carlos Tucker MD LAB BLOOD ORDERABLES Final Result [facility] [address] [place] [address], [place] [phone] * Colonoscopy (01/07/2021) Pathologist [facility] Colonoscopy Normal, Abstracted Anatomical Region Laterality Modality Other Historical Provider HEALTH MAINTENANCE Final Result * HIV Screening (08/08/2013) Pathologist [facility] HIV Screening Abstracted Historical Provider HEALTH MAINTENANCE Final Result * Hepatitis C Screening (08/08/2013) Pathologist [facility] Hepatitis C Screening Abstracted Historical Provider HEALTH MAINTENANCE Final Result from Last 3 Months or Most Recently Relevant to Health Maintenance Insurance [facility] Care Teams [employer] Relationship Specialty Start Date End Date Marcos Wilson MD [address] [place] [address] [place] PCP - General Internal Medicine 04/18/22
--- OUTSIDE RECORDS SUMMARY | 2025-08-24 20:26 | XMS_ITS | Clinical Summary ---
Author Organization [facility] Address [address] [place] [id number] Care Team Providers Care Bacteriology Technician Name Role Phone Maximo Little MD Primary Care Provider [phone] Allergies Active Allergy Reactions Criticality Noted Date [...] age to complete this topic Care Teams Bacteriology Technician Relationship Specialty Start Date End Date Maximo Little MD PCP - General Internal Medicine 04/27/19
== END 2025-08-24 15:17 | disposition home or self-care (01) ==
LOC: HO.HPHYS 15:03
PROVIDERS: PCP Internal Medicine; Visit Provider Physical Medicine & Rehabilitation
DX: M75.42 Impingement syndrome of left shoulder (principal); M75.41 Impingement syndrome of right shoulder; M16.11 Unilateral primary osteoarthritis, right hip; M54.16 Radiculopathy, lumbar region; G89.4 Chronic pain syndrome
CPT/HCPCS: 99213

== ENCOUNTER 2025-09-18 15:31 | Outpatient (AMB) | payer BC, SELFPAY ==
[2025-09-18 15:33] VITALS: BP 142/86; PULSE 83; O2SAT 96; BMI 31.4
--- NOTE | 2025-09-18 15:33 | A.OFFVIS_ITS ---
Vital Signs 09/18/25 15:33 Height 5 ft 9 in Weight 212 lb 11.937 oz BMI 31.4 BP 142/86 H Blood Pressure Location Lt brachial Position Sitting Pulse 83 Pulse Source Pulse Oximeter Pulse Oximetry (%) 96 Oxygen Delivery Method Room Air Intake Visit Reasons: Asthma College Recruiter Required: No Burlap Bag Sewer: Burlap Bag Sewer offered & declined Accompanied by: Self / Same As Patient Allergies shellfish derived Allergy (Intermediate, Verified 09/18/25 15:37) Anaphylaxis HPI Comments Details: The patient is a 49-year-old gentleman with known severe persistent asthma who presents with ongoing wheezing shortness of breath and chest tightness. The patient does follow closely with allergy and immunology. Over the summer in April was having hard time and the patient did undergo pulmonary function studies. They were done at [facility]. I did personally view them. Appeared that he had a significant obstructive ventilatory defect primarily in the post bronchodilator numbers along with severe small airways disease consistent with severe persistent asthma. In addition to that he did have a restrictive ventilatory defect. Therefore he was sent for CT scan of the chest which I personally reviewed. The patient did have a dilated esophagus with debris suggesting the possibility of microaspiration. In addition to that the patient did have evidence of bronchitis and some atelectasis and mucus plugging primarily in the lingula. On further questioning he states that he has been some difficulty swallowing. He also complains of dyspepsia. He was recently started on omeprazole which seems to be helping. He also has a positional bed and sleeps elevated. We did talk about the reflux diet and is also trying to do that. He is going to continue to limit certain things that activate his symptoms. He had started Tezspire about 2 months ago. Seems to be tolerating it inhaled has been on Breztri inhaler which she takes twice a day. But event that he requires his rescue inhaler or nebulizer couple times a day at least. Even with minimal activity and exercise he becomes significantly winded. Will go ahead and try to maximize his respiratory therapy switching over to nebulized therapy. In addition to that will further address the esophageal issue as a potential precipitants feel his asthma symptoms. Also to note the patient does have some daytime drowsiness. Olga score is elevated 07/28. He did recently have a home sleep study per report which was considered normal. Prior to that he had a sleep study that was abnormal. 03/14/2025 the patient is here for pulmonary follow-up visit. Overall the patient is doing better. He has been responding well to the Brovana and budesonide. He has not requiring additional medication. Although he still has episodes of shortness of breath. Sometimes he feels that he has lung capacity is very limited and worries him a he gets anxious. He feels like that also makes his breathing worse. His swallow still an issue. We did do a barium swallow demonstrating some mild dysmotility but at least no significant reflux appreciated. He continues to follow the reflux diet and make sure ensure that he sleep elevated to minimize symptoms. He continues on the Tezspire. Therefore will continue the therapy at this time. We did have him repeat these spirometry demonstrating significant improvement is FVC improved from 50% to 83% and his FEV1 improved from 48% to 58%. He is going to increase the Spiriva to 2 inhalations daily continue with the Brovana budesonide and continue with the Tezspire. He does complaint of mucus buildup in the back of the throat. Will try him on a 5 day course of azithromycin to see this provides some relief. He is already taking hallucinated therapies with kaushik, [place] and honey is also using Mucinex as needed. Will follow-up in 3 4 months. If he has any issues prior to this he will call for an earlier assessment. 06/06/2025 the patient is here for pulmonary follow-up visit. Overall he seems to be doing better from a respiratory status he continues to do well on the nebulized therapy. Although he still complains of chest congestion and difficult to expectorate. He has constant clearing his throat. He does use fluticasone nasal spray he does have significant congestion of the nasal passages and evidence of postnasal drip. Therefore will go ahead and have him start Sudafed to see this relieve some of the congestion. The patient also has a mucus burden when we looked at his CT scan of the chest primarily the trachea and the central airways. An Acapella valve will help as a fluttering device to help clear the mucus burden. If the patient continues to be symptomatic we can plan for bronchoscopy for an airway survey and deep cultures as well as to try to alleviate some of the discomfort. The patient also completed a course of a zithromycin. Will go ahead and start him on doxycycline with the plan of hopefully clearing up some of the bacterial colonization that is resulting in increased mucus buildup. 09/18/2025 the patient is here for pulmonary follow-up visit. The patient overall is doing better from the asthma standpoint. He continues his respiratory therapy with good effect. His main complaint is nasal congestion. Has significant postnasal drip that he feels it chokes him off. He has a hard time breathing through his nose. The nasal sprays and a helpful. He has a hard time with the nasal rinsing because the drainage is not great. The patient had seen ENT in the past and he did undergo septoplasty but then it reversed itself. The patient needs to go back to ENT at this time. In the meantime will get a CT scan of the sinuses to better assess the areas specially since he is not responding to therapy as he is refractory to any kind of therapy provided. The patient in the meantime to try performing the nasal rinse again. Unfortunately, he has blood pressure is elevated so therefore Sudafed is not an option for him. The patient is going to follow-up with his primary care doctor regarding the elevated blood pressure. He is going to refrain from too much caffeine will try to make some other lifestyle changes. The patient will follow-up in 3-4 months. If any issues he can always call for further recommendations. Hopefully we can get him to ENT soon. [facility] Medical History (Updated 09/18/25 @ 22:40 by Brent Wallace MD) HTN (hypertension) Deviated septum Chronic sinusitis Chronic pain syndrome Lumbar radiculitis Degenerative joint disease of right hip Rotator cuff impingement syndrome of right shoulder Rotator cuff impingement syndrome of left shoulder Chronic allergic rhinitis Asthma Dyspnea Asthma-COPD overlap syndrome Surgical History History of total hip replacement (Unknown) Social History Household Members: Spouse Alcohol intake: current Alcohol intake frequency: holidays/special occasions only Patient Tobacco Use Status: Never used Tobacco Current occupational status: employed Current occupation: [employer] Review of Systems Const Denies fever(s) Eyes Reports no additional complaints ENT Reports nasal congestion, Reports nasal discharge, Reports nasal obstruction and Reports post nasal drip Card Denies chest pain and Reports dyspnea on exertion Resp Reports cough, Reports dyspnea on exertion and Reports wheezing GI Reports dyspepsia Musc Reports no additional complaints Skin/Breast Denies rash Endo Reports no additional complaints Romero/Lymph Reports no additional complaints Aller/Immun Reports wheezing Physical Exam Vital Signs: Last Vital Signs Pulse 83 09/18/25 15:33 BP 142/86 H 09/18/25 15:33 Pulse Ox 96 09/18/25 15:33 Oxygen Delivery Method Room Air 09/18/25 15:33 BMI result Body Mass Index 31.4 Const General: comfortable HEENT Head: Yes normocephalic Ears: external ear abnormal (blocked with wax -left) General nose exam: Abnormal mucous membranes and turbinates present boggy Neck Neck: Yes supple Chest Chest palpation & inspection: normal inspection of the chest Resp Effort & Inspection: normal respiratory effort Auscultation: no wheezes and diminished lung sounds Cardio Heart sounds: S1 normal heart sound present and S2 normal heart sound present GI Palpation (GI): Soft to palpation Skin General skin exam: no rashes or lesions noted Extrem General: Yes no clubbing, cyanosis or edema Assessment & Plan Assessment & Plan (1) Asthma-COPD overlap syndrome: Code(s): J44.89 - Other specified chronic obstructive pulmonary disease Category: Medical (2) Dyspnea: Code(s): R06.00 - Dyspnea, unspecified Category: Medical Qualifiers: Dyspnea type: dyspnea on exertion Qualified Code(s): R06.09 - Other forms of dyspnea (3) Asthma: Code(s): J45.909 - Unspecified asthma, uncomplicated Category: Medical Qualifiers: Asthma complication type: uncomplicated Asthma persistence: persistent Asthma severity: severe Qualified Code(s): J45.50 - Severe persistent asthma, uncomplicated (4) Chronic allergic rhinitis: Code(s): J30.9 - Allergic rhinitis, unspecified Category: Medical (5) Chronic sinusitis: Code(s): J32.9 - Chronic sinusitis, unspecified Category: Medical Qualifiers: Sinusitis location: unspecified location Qualified Code(s): J32.9 - Chronic sinusitis, unspecified (6) Deviated septum: Code(s): J34.2 - Deviated nasal septum Category: Medical (7) HTN (hypertension): Code(s): I10 - Essential (primary) hypertension Category: Medical Qualifiers: Hypertension type: primary hypertension Qualified Code(s): I10 - Essential (primary) hypertension Plan Brovana BID Budesonide BID Spiriva Respimet ANNEMARIE as needed Reflux diet HOB elevated Continue PPI continue Tezspire Neti bottle rinsing continue fluticasone nasal spray CT sinus ENT referral CPT with acapella valve F/U with PCP re: HTN F/U 3-4 months Orders: Orders CT sinus wo IV con Today J30.9 - Allergic rhinitis, unspecified, J32.9 - Chronic sinusitis, unspecified, J34.2 - Deviated nasal septum Referrals Ear/Nose/Throat Referral J32.9 - Chronic sinusitis, unspecified Medications: New amoxicillin-pot clavulanate 875-125 mg 1 tab PO BID 20 tabs 0RF 10 days oxymetazoline 0.05% (Afrin (oxymetazoline)) 2 sprays intranasal Q12H PRN 22 mL 0RF nasal congestion 5 days methylprednisolone (Medrol (Natalio)) PO PER PKG DIR 21 ea 0RF 6 days Coding Level of Care Code Est Pt Level 4 (83288) Diagnoses Asthma-COPD overlap syndrome J44.89 Dyspnea on exertion R06.09 Dyspnea type: dyspnea on exertion Severe persistent asthma without complication J45.50 Asthma complication type: uncomplicated Asthma persistence: persistent Asthma severity: severe Chronic allergic rhinitis J30.9 Chronic sinusitis, unspecified location J32.9 Sinusitis location: unspecified location Deviated septum J34.2 Primary hypertension I10 Hypertension type: primary hypertension
--- OUTSIDE RECORDS SUMMARY | 2025-09-18 21:58 | XMS_ITS | Clinical Summary ---
Author Organization [facility] Prior to 03/04/[address] [place] [id number] Care Team Providers Care Investigation Manager Name Role Phone Maximo Little MD Primary Care Provider [phone] Allergies Active Allergy Reactions Criticality Noted Date [...] 2025 10/16/2021, 09/09/2021 Influenza Vaccine (#1) 2025 , 12/12/2014, 08/08/2013, Additional history exists DTap / Tdap / Td (3 - Td or Tdap) 12/08/2027 12/07/2017, 08/23/2008 Pneumococcal Vaccine Aged Out 08/08/1994 No long er eligible based on patient's age to complete this topic RSV Ped < 20 months Aged Out No longe r eligible based on patient's age to complete this topic Care Teams Investigation Manager Relationship Specialty Start Date End Date Maximo Little MD PCP - General Internal Medicine 04/27/19
--- OUTSIDE RECORDS SUMMARY | 2025-09-18 21:58 | XMS_ITS | Clinical Summary ---
Author Organization [address] [facility] Address [address] [place] [address] Phone Care Team Providers Care Professor Of Voice Name Role Phone Marcos Wilson MD Primary Care Provider Allergies Active Allergy Reactions Criticality Noted Date [...] or chew. 90 capsule 3 5 Active arformoteroL (BROVANA) 15 mcg/2 mL nebulizer solution Active Tezspire 210 mg/1.91 mL (110 mg/mL) injection Inject 210 mg under the skin every 28 (twenty-eight) days. 5 Active Spiriva Respimat 2.5 mcg/actuation inhalation spray Inhale 2 puffs by mouth 1 (one) time each day. 5 Active tiZANidine (ZANAFLEX) 4 mg tablet Take by mouth. 5 Active albuterol HFA (Ventolin HFA) 90 mcg/actuation inhaler Inhale 2 puffs by mouth every 4 (four) hours if needed for wheezing or shortness of breath. 8 g 5 5 03/10/20 26 Active atorvastatin (LIPITOR) 20 mg tablet Take 1 tablet (20 mg total) by mouth 1 (one) time each day. 90 tablet 1 5 Active losartan (COZAAR) 50 mg tablet Take 1 tablet (50 mg total) by mouth 1 (one) time each day. 90 tablet 1 5 Active sildenafiL (VIAGRA) 50 mg tablet TAKE ONE TABLET BY MOUTH 30 MINUTES PRIOR TO INTERCOURSE NEEDED 15 tablet 4 5 Active Active Problems Problem Noted Date [...] for better LV function assessment. Cyclic neutropenia 05/22/2020 Allergic rhinitis 06/23/2019 Carpal tunnel syndrome 03/09/2019 Severe persistent asthma 01/31/2019 Environmental and seasonal allergies 01/28/2019 Overview (08/08/2024): Cats/dog dander, house mites, shellfish Severe obesity (BMI 35.0-35.9 with comorbidity) 01/28/2019 Cervical radiculopathy 12/08/2018 Elevated liver enzymes 08/20/2018 Gastroesophageal reflux disease without esophagi tis 06/30/2018 Bursitis of right hip 01/27/2018 Lumbar degenerative disc disease 12/03/2016 Overview (08/08/2024): Xray in [facility] ER 11/30/2016 showing degenerative chnages with 6mm retrolisthesis of L5 - S1. Chest pain 07/07/2014 Overview (08/08/2024): neg ETT 07/2014 Erectile dysfunction 07/07/2014 Hyperlipidemia 06/23/2014 Arcus senilis 09/04/2008 Encounters Date Type Department Care Team Description 08/07/2025 3:30 PM EST Office Visit Adult Medicine [address] [address] Marcos Wilson MD Primary hypertension (Primary Dx); Mixed hyperlipidemia; Asthma-COPD overlap syndrome (CMS/HCC V24, CMS/HCC V28); Prediabetes; Degeneration of intervertebral disc of [...] Surgery Date Site/Laterality Comments NOSE SURGERY PROCEDURE: MD UNLISTED PROCEDURE NOSE; COMMENT: septoplasty 2009 WISDOM TOOTH EXTRACTION PROCEDURE: HISTORICAL WISDOM TEETH EXTRACTION OTHER SURGICAL HISTORY 02/2022 Right PROCEDURE: MD ARTHRP ACETBLR/PROX FEM PROSTC AGRFT/ALGRFT; COMMENT: Dr. [...] ed Within the last 3 months, ho w many times did you visit the emergency [...] on file Sexual Orientation Not on file Last Filed Vital Signs [...] 4:00 PM EDT Office Visit Adult Medicine [facility] [address] [place], [place] [phone] Marcos Wilson MD [address] [place] [address] Health Maintenance Due Date Last Done Comments Hepatitis B Vaccines (1 of 3 - 19+ 3-dose series) 1992 Zoster Vaccines (1 of 2) 1992 Pneumococcal Vaccine: 50+ Years (3 of 3 - PCV) 04/04/2011 04/04/2010, 05/31/2006, 08/08/1994 COVID-19 Vaccine (3 - Pfizer risk series) 11/13/2021 10/16/2021, 09/09/2021 RSV Immunization Adult Patients (1 - Risk 50-74 years 1-dose series) 2023 Influenza Vaccine (#1) 2025 , 10/22/2020, 11/04/2017, [...] LAB CHEMISTRY METHOD 02/13/2025 4:16 PM EDT [facility] Triglycerides 50 0 - 150 mg/dL LAB CHEMISTRY METHOD 02/13/2025 4:16 PM EDT [facility] HDL 51 >=40 mg/dL LAB CHEMISTRY METHOD 02/13/2025 4:16 PM EDT [facility] LDL Calculated 91 0 - 100 mg/dL LAB CHEMISTRY METHOD 02/13/2025 4:16 PM EDT [facility] VLDL Cholesterol Jono 10 mg/dL LAB CHEMISTRY METHOD 02/13/2025 4:16 PM EDT [facility] Non HDL Chol. (LDL+VLDL) 101 <145 mg/dL LAB CHEMISTRY METHOD 02/13/2025 4:16 PM EDT [facility] Chol/HDL Ratio 3.0 0.0 - 4.4 LAB CHEMISTRY METHOD 02/13/2025 4:16 PM [facility] Blood Venous blood specimen / Unknown Venipuncture / Unknown 02/13/2025 12:55 PM EDT 02/13/2025 12:55 PM EDT us Marcos Wilson MD LAB BLOOD ORDERABLES Final Result [facility] [address] [place] [address], * (ABNORMAL) Comprehensive metabolic panel (01/18/2025 5:21 PM EDT) Sodium 137 133 - 145 mmol/L LAB CHEMISTRY METHOD 01/18/2025 6:10 PM [facility] Potassium 3.8 3.5 - 5.5 [...] 73m2 LAB CHEMISTRY METHOD 01/18/2025 6:10 PM EDT [facility] Comment:Calculation based on the Chronic Kidney Disease Epidemiology Collaboration (CKD-EPI) equation refit without adjustment for race. BUN/Creatinine Ratio 18.2 LAB CHEMISTRY METHOD 01/18/2025 6:10 PM EDT [facility] Calcium 9.4 8.5 - 10.5 mg/dL [...] g/dL LAB CHEMISTRY METHOD 01/18/2025 6:10 PM [facility] Albumin 4.2 3.2 - 5.0 g/dL LAB CHEMISTRY METHOD 01/18/2025 6:10 PM [facility] Total Bilirubin 0.6 0.0 - 1.4 mg/dL LAB CHEMISTRY METHOD 01/18/2025 6:10 PM [facility] Blood Venous blood specimen / Unknown Venipuncture / Unknown 01/18/2025 5:21 PM EDT 01/18/2025 5:46 PM EDT us Carlos Tucker MD LAB BLOOD ORDERABLES Final Result [facility] [address] [place] [address], * Colonoscopy (01/07/2021) [facility] Colonoscopy Normal, Abstracted Anatomical Region Laterality Modality Other Historical Provider HEALTH MAINTENANCE Final Result * HIV Screening (08/08/2013) Pathologist [facility] HIV Screening Abstracted Historical Provider HEALTH MAINTENANCE Final Result * Hepatitis C Screening (08/08/2013) Pathologist [facility] Hepatitis C Screening Abstracted [facility] Provider HEALTH MAINTENANCE Final Result from Last 3 Months or Most Recently Relevant to Health Maintenance Insurance [facility] Care Teams Professor Of Voice Relationship Specialty Start Date End Date Marcos Wilson MD [address] [place] [address] PCP - General Internal Medicine 04/18/22
== END 2025-09-18 16:20 | disposition home or self-care (01) ==
LOC: HO.HPS 15:32
PROVIDERS: PCP Internal Medicine; Visit Provider Hospitalist
DX: J44.89 Other specified chronic obstructive pulmonary disease (principal); R06.09 Other forms of dyspnea; J45.50 Severe persistent asthma, uncomplicated; J30.9 Allergic rhinitis, unspecified; J32.9 Chronic sinusitis, unspecified; J34.2 Deviated nasal septum; I10 Essential (primary) hypertension
CPT/HCPCS: 99214